=== PATIENT | male | born 1960 | race Caucasian/White ===

== ENCOUNTER 2017-03-12 09:26 | Inpatient (IN) | payer OTHER ==
[~2017-03-12] VITALS: Ht 175.3 cm; Wt 67.1 kg
[~2017-03-12 09:26] MED LIST: AMLO10TA2 PO; ASPI81TA81; CARV6.25 PO; CRUTMIS25; CRUTMIS3; GABA800T PO; HYDR25TA5 PO; LIPI10TA PO; OXYC1TAB35 PO; OXYC1TAB63 PO; PLAV75TA29 PO; PRIN20TA2 PO
[2017-03-12 09:29] VITALS: BP 185/87; PULSE 75; RESP 16; TEMP 98.2; O2SAT 97
[2017-03-12] MEDS ORDERED: HEPARIN-D5W INJ 250 ML IV SCH ×2 (10:15→13:45)
[2017-03-12] MEDS ORDERED: HEPARIN SODIUM - IV 10,000 UNITS/10 ML VIAL IV ONE (10:15)
[2017-03-12 10:24] LABS: AUTOMATED NEUTROPHIL # 6.3 TH/MM3 (1.8-7.7); BASOPHIL # 0.1 TH/MM3 (0-0.2); BASOPHIL % 0.7 % (0.0-2.0); EOSINOPHIL # 0.1 TH/MM3 (0-0.4); EOSINOPHIL % 1.6 % (0.0-4.0); HEMATOCRIT 43.1 % (39.0-51.0); HEMO FLAGS DIFF FINAL; LYMPH % 11.1 % (9.0-44.0); LYMPHOCYTE # 0.9 TH/MM3 (1.0-4.8); MEAN CELL VOLUME 89.6 FL (80.0-100.0); MEAN CORPUSCULAR HEMOGLOBIN 29.8 PG (27.0-34.0); MEAN CORPUSCULAR HGB CONC 33.3 % (32.0-36.0); MONO % 9.4 % (0.0-8.0); NEUT % 77.2 % (16.0-70.0); PLATELET COUNT 152 TH/MM3 (150-450); RED BLOOD COUNT 4.82 MIL/MM3 (4.50-5.90); RED CELL DISTRIBUTION WIDTH 16.9 % (11.6-17.2); WHITE BLOOD COUNT 8.2 TH/MM3 (4.0-11.0)
[2017-03-12] MEDS ORDERED: HYDROmorphone HCL PF 1 MG/ML VIAL IVS ONE (10:30)
[2017-03-12 10:37] LABS: APTT (PATIENT) 27.6 SEC (24.3-30.1); PROTHROMBIN TIME - PATIENT 11.4 SEC (9.8-11.6)
[2017-03-12 10:41] LABS: ANION GAP 10 MEQ/L (5-15); AST (GOT) 28 U/L (15-37); BICARBONATE 24.7 MEQ/L (21.0-32.0); BLOOD UREA NITROGEN 10 MG/DL (7-18); CHLORIDE 97 MEQ/L (98-107); GLOMERULAR FILTRATION RATE 112 ML/MIN (>89); SODIUM (NA) 132 MEQ/L (136-145)
[2017-03-12 10:44] LABS: ALKALINE PHOSPHATASE 49 U/L (45-117); ALT (GPT) 35 U/L (12-78); TOTAL BILIRUBIN ADULT 0.7 MG/DL (0.2-1.0)
[2017-03-12] MEDS ORDERED: IOHEXOL 350 MG/ML 10 ML VIAL (for RAD DIAG) IV ONE (11:35)
[2017-03-12 11:54] VITALS: BP 135/72; PULSE 65; RESP 16; O2SAT 95
--- NOTE | 2017-03-12 12:06 | PD ---
HPI Chief Complaint: Musculoskeletal Complaint Time Seen by Provider: 09:48 Travel History International Travel<30 days: No Contact w/Intl Traveler<30days: No Traveled to known affect area: No History of Present Illness HPI So 57 year-old man who presents to the emergency department complaining of painful cold right foot. He reports a history of a femoropopliteal bypass in September with Dr. Delatorre. He states he was doing fine last night and then today he noticed increased pain in the foot, and it felt cold and dusky. His a history of peripheral vascular disease, CAD, hypertension, hyperlipidemia. Is on baby aspirin and Plavix daily. Is been taking his doses regularly. History Past Medical History Narrative Medical Peripheral arterial disease CAD Hypertension hyperlipidemia Tetanus Vaccination: < 5 Years Influenza Vaccination: Yes Social History Alcohol Use: No Tobacco Use: No Allergies-Medications (Allergen,Severity, Reaction): Coded Allergies: No Known Allergies (Unverified , 09/28/16) Reported Meds & Prescriptions Reported Meds & Active Scripts Active Prinivil (Lisinopril) 20 Mg Tab 20 Mg PO Q12HR Lipitor (Atorvastatin Calcium) 10 Mg Tab 10 Mg PO DAILY Hydrochlorothiazide 25 Mg Tab 25 Mg PO DAILY Amlodipine (Amlodipine Besylate) 10 Mg Tab 10 Mg PO DAILY Oxycodone-Acetaminophen 5-325 mg Tab 1 Tab PO Q4H PRN Oxycodone-Acetaminophen 7.5-325 mg Tab 1 Tab PO Q6H PRN Reported Crutch/Aluminum/Adult (Device) 1 Mis Mis 1 Ea .ROUTE DIRECTED Crutch Set/Wood/Adult (Device) 1 Mis Mis 1 Ea .ROUTE DIRECTED Gabapentin 800 Mg Tab 800 Mg PO TID Plavix (Clopidogrel Bisulfate) 75 Mg Tab 75 Mg PO DAILY Coreg (Carvedilol) 6.25 Mg Tab 6.25 Mg PO Q12HR Aspir-81 (Aspirin) 81 Mg Tabdr 1 Tab DAILY Review of Systems Except as stated in HPI: all other systems reviewed are Neg Physical Exam Narrative GENERAL: 57 year-old man, no acute distress. NECK: Trachea midline. No JVD. CARDIOVASCULAR: Regular rate and rhythm. No murmur appreciated. RESPIRATORY: No accessory muscle use. Clear to auscultation. Breath sounds equal bilaterally. GASTROINTESTINAL: Abdomen soft, non-tender, nondistended. Hepatic and splenic margins not palpable. MUSCULOSKELETAL: Focus examination the right lower extremity reveals the foot to be pale and dusky cold. The entire leg is fairly cool. There are no palpable pulses in the femoral, popliteal, or distally. He has multiple incisions in his proximal leg and the medial knee from what appears to be of previous femoropopliteal bypass. I don't feel pulses over either of these areas. He still is muscular function in the leg. NEUROLOGICAL: Awake and alert. No obvious cranial nerve deficits. Motor grossly within normal limits. Normal speech. PSYCHIATRIC: Appropriate mood and affect; insight and judgment normal. Data Data Last Documented VS Vital Signs Date Time Temp Pulse Resp B/P Pulse Ox O2 Delivery O2 Flow Rate FiO2 03/12/17 11:54 65 16 135/72 95 Room Air 03/12/17 09:29 98.2 Orders Complete Blood Count With Diff (03/12/17 09:48) Comprehensive Metabolic Panel (03/12/17 09:48) Act Partial Throm Time (Ptt) (03/12/17 09:48) Prothrombin Time / Inr (Pt) (03/12/17 09:48) Iv Access Insert/Monitor (03/12/17 09:48) Cta Runoff W Iv Contrast W 3d (03/12/17 ) Heparin Infusion IRMA.Q1H (03/12/17 10:13) Heparin Inj (Heparin Inj) (03/12/17 16:15) Heparin Inj (Heparin Inj) (03/12/17 16:15) Heparin-D5w Inj (Heparin-D5w Inj) (03/12/17 10:15) Act Partial Throm Time (Ptt) (03/12/17 10:13) Cbc No Diff, Includes Plts (03/12/17 10:13) Cbc No Diff, Includes Plts (03/15/17 06:00) Act Partial Throm Time (Ptt) (03/12/17 17:13) Occult Blood (Hemoccult) Stool (03/12/17 10:13) Heparin Inj (Heparin Inj) (03/12/17 10:15) Hydromorphone Pf Inj (Dilaudid Pf Inj) (03/12/17 10:30) Iohexol 350 Inj (Omnipaque 350 Inj) (03/12/17 11:35) Invasive Rad Dept Consult (03/12/17 ) Admit Order (Ed Use Only) (03/12/17 ) Admit To Inpatient (03/12/17 ) Code Status (03/12/17 13:33) Vital Signs (Adult) Q4H (03/12/17 13:33) Activity Bed Rest (03/12/17 13:33) Intake + Output IRMA.QSHIFT (03/12/17 13:33) Diet Npo (03/12/17 Lunch) Sodium Chlor 0.9% 1000 Ml Inj (Ns 1000 M (03/12/17 13:33) Sodium Chloride 0.9% Flush (Ns Flush) (03/12/17 13:45) Sodium Chloride 0.9% Flush (Ns Flush) (03/12/17 21:00) Ondansetron Inj (Zofran Inj) (03/12/17 13:45) Pantoprazole Inj (Protonix Inj) (03/12/17 13:45) Basic Metabolic Panel (Bmp) (03/13/17 06:00) Hepatic Functional Panel (03/13/17 06:00) Complete Blood Count With Diff (03/13/17 06:00) Resp Incentive Spirometry (03/12/17 ) Consult Hospitalist (03/12/17 ) Post-Op Orders (For Pharmacy) (Post-Op O (03/12/17 13:45) Morphine Inj (Morphine Inj) (03/12/17 13:45) Naloxone Inj (Narcan Inj) (03/12/17 13:45) Inpatient Certification (03/12/17 ) Labs Laboratory Tests Test 03/12/17 10:00 White Blood Count 8.2 TH/MM3 Red Blood Count 4.82 MIL/MM3 Hemoglobin 14.4 GM/DL Hematocrit 43.1 % Mean Corpuscular Volume 89.6 FL Mean Corpuscular Hemoglobin 29.8 PG Mean Corpuscular Hemoglobin 33.3 % Concent Red Cell Distribution Width 16.9 % Platelet Count 152 TH/MM3 Mean Platelet Volume 9.2 FL Neutrophils (%) (Auto) 77.2 % Lymphocytes (%) (Auto) 11.1 % Monocytes (%) (Auto) 9.4 % Eosinophils (%) (Auto) 1.6 % Basophils (%) (Auto) 0.7 % Neutrophils # (Auto) 6.3 TH/MM3 Lymphocytes # (Auto) 0.9 TH/MM3 Monocytes # (Auto) 0.8 TH/MM3 Eosinophils # (Auto) 0.1 TH/MM3 Basophils # (Auto) 0.1 TH/MM3 CBC Comment DIFF FINAL Differential Comment Prothrombin Time 11.4 SEC Prothromb Time International 1.0 RATIO Ratio Activated Partial 27.6 SEC Thromboplast Time Sodium Level 132 MEQ/L Potassium Level 4.0 MEQ/L Chloride Level 97 MEQ/L Carbon Dioxide Level 24.7 MEQ/L Anion Gap 10 MEQ/L Blood Urea Nitrogen 10 MG/DL Creatinine 0.73 MG/DL Estimat Glomerular Filtration 112 ML/MIN Rate Random Glucose 128 MG/DL Calcium Level 8.9 MG/DL Total Bilirubin 0.7 MG/DL Aspartate Amino Transf 28 U/L (AST/SGOT) Alanine Aminotransferase 35 U/L (ALT/SGPT) Alkaline Phosphatase 49 U/L Total Protein 7.4 GM/DL Albumin 3.9 GM/DL [facility] Medical Decision Making Medical Screen Exam Complete: Yes Emergency Medical Condition: Yes Interpretation(s) LABS: CBC unremarkable. CMP unremarkable. Coags unremarkable. CTA: Occluded external iliac pack artery bypass graft, occluded right femoropopliteal bypass. Reconstitution of the [id number] popliteal, trifurcation vessels are patent with an approximal A poorly opacified distal with this due to the more proximal occlusions. Differential Diagnosis Arterial occlusion, dissection, DVT, other Narrative Course Medical decision making INITIAL: 57 year-old man who presents emergent from with evidence of acute arterial insufficiency in the right leg. It seems like he may have some element of chronic insufficiency as well. I spoke with Dr. Nolan immediately after my initial assessment, patient's previous vascular surgeon. He will come and evaluate the patient. CTA of his right lower extremity was ordered. Patient was started on heparin. He was given pain medicine. FINAL: CTA confirms occlusion of the patient's grafts. Dr. ch making the bedside to evaluate the patient. He'll be taken for endovascular intervention with TPA. Diagnosis Primary Impression: Arterial occlusion Additional Impression: Peripheral arterial occlusive disease Admitting Information Admitting Physician Requests: Admit Ron Fierro MD March 12, 2017 12:06
--- NOTE | 2017-03-12 12:28 | RADRPT ---
EXAM DATE/TIME: 03/12/2017 10:45 [facility] COMPARISON: CTA RUNOFF W 3D RECON, September 16, 2016, 12:18. INDICATIONS : Right cold foot with history of peripheral vascular disease. IV CONTRAST: 99 cc Omnipaque 350 (iohexol) IV RADIATION DOSE: 8.29 CTDIvol (mGy) MEDICAL HISTORY : Cardiovascular disease. Hypertension. SURGICAL HISTORY : Lumbar surgery ENCOUNTER: Initial ACUITY: 1 day PAIN SCALE: 4/10 LOCATION: Right foot TECHNIQUE: Volumetric scanning was performed using a multi-row detector CT scanner. The data was post processed with a variety of visualization algorithms including full volume maximum intensity projection, multi -planar sliding thin slab reformation, curved planar reformation, and surface rendering techniques. Using automated exposure control and adjustment of the mA and/or kV according to patient size, radiat ion dose was kept as low as reasonably achievable to obtain optimal diagnostic quality images. FINDINGS: Aorta/inflow: Atherosclerotic changes are seen involving the aorta with eccentric mural thrombus seen within the in frarenal aorta. No ulceration appreciated. No aneurysmal change or hemodynamically significant stenos is. Heavily calcified plaque involving the inflow vessels bilaterally. The right external iliac arter y is chronically occluded. Since the previous examination there has been placement of a bypass in inv olving the right iliac system. The proximal anastomosis is at the distal common iliac level the dista l anastomosis at the common femoral level. This bypass is occluded. There is a stent involving the le ft external iliac artery. This is patent. Left common iliac artery is patent. The left internal iliac artery is occluded. The right is stenotic. The celiac, SMA, JANENE, and renal arteries are patent. Right lower extremity: Since the previous examination there has been placement of a second femoral artery to above-knee popl iteal artery bypass graft. This graft is occluded. The previously seen bypass graft is also occluded. The [place] SFA and common femoral artery are occluded. The profunda femoris does reconstitute via op erator collateralization. There is reconstitution of the popliteal artery just [id number]-wzn-[id number] joint. This is patent. The trifurcation vessels are poorly evaluated due to the proximal occlusions. There i s patency to the level of the proximal catheter within all 3 trifurcation vessels. Left lower extremity: There is a bypass graft beginning at the common femoral artery and extending to the qzayn-crj-uomw po pliteal artery. Several stents are seen throughout the bypass itself. The bypass is patent. Profunda femoris is stenotic at its origin but otherwise patent. [place] SFA is occluded. The popliteal artery below the bypass is patent. 2 vessel runoff to the foot is observed via the posterior tibial artery a nd anterior tibial artery. Peroneal artery is occluded proximally. Other structures: The liver is diffusely low in attenuation. Multiple granulomatous calcifications are seen involving t he spleen. Tiny cortical renal cysts bilaterally. CONCLUSION: 1. Interval placement of a right external iliac artery bypass graft since the prior exam. This bypass is occluded. Left inflow is patent. 2. Interval placement of a new right femoropopliteal bypass. This bypass as well as the previous bypa ss and [place] SFA are occluded. There is reconstitution of the ybibu-ybc-begi popliteal artery. Trifu rcation vessels are patent within the proximal calf but are poorly opacified distal to this due to th e more proximal occlusions. 3. Left lower extremity has a patent femoropopliteal bypass. 2 vessel runoff to the foot. 4. Hepatic steatosis. Donavan Lindsey Jr., MD on March 12, 2017 at 12:16 Board Certified Radiologist. This report was verified electronically.
[2017-03-12] MEDS ORDERED: MORPHINE SULFATE 4 MG/ML INJ IV PRN (13:45)
[2017-03-12] MEDS ORDERED: ONDANSETRON HCL 4 MG/2 ML VIAL IV PRN ×2 (13:45→17:30)
[2017-03-12] MEDS ORDERED: NALOXONE HCL 0.4 MG/ML AMP IV PRN (13:45)
[2017-03-12] MEDS ORDERED: SODIUM CHLORIDE 0.9% FLUSH 10 ML FLUSH IV FLUSH PRN (13:45)
[2017-03-12] MEDS ORDERED: HYDROmorphone HCL PF 1 MG/ML VIAL IV PUSH ONE (13:45)
[2017-03-12] MEDS ORDERED: Post-op Orders (for Pharmacy) MISC XX ONE (13:45)
[2017-03-12] MEDS: SODIUM CHLOR 0.9% 1000 ML INJ 1,000 ML IV SCH (13:53)
[2017-03-12] MEDS: PANTOPRAZOLE SODIUM 40 MG VIAL IV SCH (14:00)
[2017-03-12 14:33] VITALS: BP 135/73; PULSE 63; RESP 16; O2SAT 95
--- NOTE | 2017-03-12 14:59 | MH ---
cc: NOÉ GROVER MD DATE OF ADMISSION: 03/12/2017 ADMITTING DIAGNOSIS Occlusion of the right common iliac to common femoral and right common femoral to popliteal artery graft. HISTORY OF PRESENT DISEASE This 57-year-old male, lifetime smoker, was admitted this morning through the emergency room. The patient was doing fine last night and states that this morning he suddenly felt numbness and pain in his right foot and his right leg turned pale. PAST MEDICAL HISTORY 1. Coronary artery disease with stent placement. 2. Hypertension. 3. Hyperlipidemia. 4. Tobacco abuse. PAST SURGICAL HISTORY 1. Coronary artery angioplasty and stenting. 2. Bilateral femoral-popliteal bypass in 2007 followed by above-noted common iliac to common femoral and common femoral to popliteal bypass by me in 2016. The patient did well until now for the last six months. MEDICATIONS 1. Plavix. 2. Aspirin. 3. Hydrochlorothiazide. 4. Amlodipine. 5. Pletal. 6. Coreg. SOCIAL HISTORY The patient drinks about a six-pack per day and smokes about a pack a day. The patient states he stopped smoking but he smells of cigarette smoke and adverts his eyes when talking about it. PHYSICAL EXAMINATION GENERAL: The physical examination reveals a 58-year-old male appearing older than his actual age. HEENT: Normocephalic. No trauma to the head. Pupils equal and reactive. Extraocular muscles intact. NECK: Bilateral carotid pulses. Faint right carotid bruit that was worked up in the past and the patient was not found to have any significant stenosis. CHEST: Bilateral breath sounds, somewhat decreased over both apices. HEART: Regular rhythm. ABDOMEN: Soft. Active bowel sounds. No rebound. No guarding. No masses. EXTREMITIES: The patient has palpable femoral pulse on the left. He has Doppler popliteal, dorsalis pedis and posterior tibial on the left. On the left side the pulse is probably caused by reconstitution for his bypass graft is patent but has several stents. The left foot is warm. On the right side the patient has actually Doppler'able femoral pulse which is probably collateral flow. There is nothing palpable there. The common iliac to common femoral and then common femoral to popliteal artery bypass is occluded. The patient has no popliteal pulse; however, he does have very weak pulse in the popliteal artery which is probably some reconstitution. This is only a Doppler'able weak signal. Distal to that there is nothing. The foot is pale, cold and insensate. The patient, however, does have full motion of the feet. IMPRESSION AND PLAN In the face of the above the patient was taken to the boat laborer. I discussed this with Dr. Goodman and the patient will have a TPA lysis over the next 24-48 hours. This might open up the grafts and this may be all that needs to be done. If this does not succeed completely the patient will need additional open surgery to retrieve some of the clots in trying to establish the blood flow. Again the patient has had several surgeries. He had previous graft and then redo graft and we are kind of getting at the end of the road with this. The only other option that would be left is an in situ vein which does not exist in this patient so the only next thing would be a cadaveric vein. However, the patient's smoking history is not helping. Critical care time 40 minutes. Noé UP /2:15 PM /2:39 PM
[2017-03-12] MEDS ORDERED: MIDAZOLAM HCL 5 MG/5 ML VIAL ONE (15:31)
[2017-03-12] MEDS ORDERED: fentaNYL CITRATE 250 MCG/5 ML AMP ONE (15:31)
[2017-03-12] MEDS ORDERED: CILOSTAZOL 100 MG TAB PO SCH (16:00)
[2017-03-12] MEDS ORDERED: HEPARIN SODIUM - IV 10,000 UNITS/10 ML VIAL IV PRN ×2 (16:15)
[2017-03-12] MEDS ORDERED: ASPIRIN 325 MG TAB PO SCH (16:45)
[2017-03-12] MEDS ORDERED: IODIXANOL 320 MG/ML 50 ML VIAL (for RAD SPEC) I-ARTERIAL ONE (16:45)
--- NOTE | 2017-03-12 16:48 | PD.CONS ---
HPI Service [facility] Hospitalists Consult Requested By Dr. Nolan Reason for Consult Medical management Primary Care Physician Grace Harley MD Diagnoses: History of Present Illness This is a 57 yo male with a past medical history significant for peripheral vascular disease status post bilateral femoral popliteal bypass in 2007 followed by common iliac to common femoral and common femoral to popliteal bypass done in September 2016, coronary artery disease status post stent placement with history of previous NH 2, hypertension, hyperlipidemia and previous lifelong tobacco user up until 5 months ago who was admitted with numbness and pain in the right foot due to bypass occlusion. Hospitalist services have been consulted for medical management. Patient states that he been doing well up until this morning when he developed significant pain and numbness in the right foot. He also noticed that it became very pale in color and he was unable to feel a pulse. Patient was unable to walk on the right leg. Patient states he's been taking all his medications as prescribed and reports that he quit smoking 5 months ago. In the ED, CTA revealed occlusion of the right external iliac artery bypass graft, occlusion of the new right femoral popliteal bypass and [place] SFA and trifurcation vessels are patent within the proximal calf that are poorly opacified distal due to more proximal occlusions. Plan by the primary team is for the patient to have TPA lysis over the next 24-48 hours in the hopes of opening up the grass without any further treatment needed. However per Dr. Denise's note, if this attempt is unsuccessful the patient will need additional open surgery to retrieve some of the clots in an effort to reestablish blood flow. Patient reports his pain is controlled at this time. Review of Systems Except as stated in HPI: all other systems reviewed are Neg Past Family Social History Allergies: Coded Allergies: No Known Allergies (Unverified , 09/28/16) Past Medical History Peripheral vascular disease Coronary artery disease status post stent placement with history of previous NH Hypertension Hyperlipidemia Recent history of tobacco abuse Past Surgical History Cardiac stent placement 1996 and 2013 Left and right femoral-popliteal bypass and a right sided iliac stenting Right common iliac to common femoral and common femoral to popliteal bypass September 2016 Back surgery, details unknown Bilateral knee surgery, details unknown Reported Medications Prinivil (Lisinopril) 20 Mg Tab 20 Mg PO Q12HR Lipitor (Atorvastatin Calcium) 10 Mg Tab 10 Mg PO DAILY Hydrochlorothiazide 25 Mg Tab 25 Mg PO DAILY Amlodipine (Amlodipine Besylate) 10 Mg Tab 10 Mg PO DAILY Oxycodone-Acetaminophen 5-325 mg Tab 1 Tab PO Q4H PRN Oxycodone-Acetaminophen 7.5-325 mg Tab 1 Tab PO Q6H PRN Crutch/Aluminum/Adult (Device) 1 Mis Mis 1 Ea .ROUTE DIRECTED Crutch Set/Wood/Adult (Device) 1 Mis Mis 1 Ea .ROUTE DIRECTED Gabapentin 800 Mg Tab 800 Mg PO TID Plavix (Clopidogrel Bisulfate) 75 Mg Tab 75 Mg PO DAILY Coreg (Carvedilol) 6.25 Mg Tab 6.25 Mg PO Q12HR Aspir-81 (Aspirin) 81 Mg Tabdr 1 Tab DAILY Active Ordered Medications Current Medications Medications (Trade) Dose Ordered Sig/Kayla Route Start Time Stop Time Status Last Admin (NS 1000 ml Inj) 1,000 ml @ 100 mls/hr Q10H IV 03/12/17 13:33 03/12/17 13:53 (NS Flush) 2 ml UNSCH PRN IV FLUSH 03/12/17 13:45 (NS Flush) 2 ml BID IV FLUSH 03/12/17 21:00 (Zofran Inj) 4 mg Q6H PRN IV 03/12/17 13:45 (Protonix Inj) 40 mg Q24H IV 03/12/17 14:00 (Morphine Inj) 2 mg Q3H PRN IV 03/12/17 13:45 (Narcan Inj) 0.4 mg UNSCH PRN IV 03/12/17 13:45 (Lipitor) 10 mg DAILY PO 03/13/17 09:00 (Coreg) 6.25 mg Q12HR PO 03/12/17 21:00 (Prinivil) 20 mg Q12HR PO 03/12/17 21:00 Amlodipine Besylate 10 mg 10 mg DAILY PO 03/13/17 09:00 (Heparin-D5W Inj) 250 ml @ 0 mls/hr TITRATE IV 03/12/17 13:45 (Pletal) 100 mg BIDAC PO 03/12/17 16:00 Family History Coronary artery disease Peripheral vascular disease Emphysema Social History Patient has a history of tobacco use of a pack per day "all his life" but states he quit smoking in September following his last surgery. Patient admits to alcohol consumption of 3-4 beers a night he denies any previous history of withdrawals. Physical Exam Vital Signs Vital Signs Date Time Temp Pulse Resp B/P Pulse Ox O2 Delivery O2 Flow Rate FiO2 03/12/17 14:33 63 16 135/73 95 Room Air 03/12/17 14:19 14 03/12/17 11:54 65 16 135/72 95 Room Air 03/12/17 11:00 14 03/12/17 09:29 98.2 75 16 185/87 97 Physical Exam GENERAL: This is a well-nourished, well-developed patient, in no apparent distress. Awake and alert. SKIN: No rashes, ecchymoses or lesions. Cool and dry. HEAD: Atraumatic. Normocephalic. EYES: Extraocular motions intact. No scleral icterus. No injection or drainage. ENT: Nose without bleeding, purulent drainage or septal hematoma. NECK: Trachea midline. No lymphadenopathy. CARDIOVASCULAR: Regular rate and rhythm without murmurs, gallops, or rubs. RESPIRATORY: Diffuse rhonchi throughout. Breath sounds equal bilaterally. GASTROINTESTINAL: Abdomen soft, non-tender, nondistended. No hepato-splenomegaly , or palpable masses. No guarding. MUSCULOSKELETAL: Extremities without clubbing or edema. Right foot is pale. Right foot and leg are cool to the touch. Pulses are nonpalpable. Multiple well healed surgical scars noted. Motor function appears grossly intact. No joint tenderness, effusion, or edema noted. Palpable pulses on the left foot which is normal in color and temperature. NEUROLOGICAL: Awake and alert. Able to move all extremities. Normal speech. Laboratory Laboratory Tests Test 03/12/17 10:00 White Blood Count 8.2 Red Blood Count 4.82 Hemoglobin 14.4 Hematocrit 43.1 Mean Corpuscular Volume 89.6 Mean Corpuscular Hemoglobin 29.8 Mean Corpuscular Hemoglobin 33.3 Concent Red Cell Distribution Width 16.9 Platelet Count 152 Mean Platelet Volume 9.2 Neutrophils (%) (Auto) 77.2 Lymphocytes (%) (Auto) 11.1 Monocytes (%) (Auto) 9.4 Eosinophils (%) (Auto) 1.6 Basophils (%) (Auto) 0.7 Neutrophils # (Auto) 6.3 Lymphocytes # (Auto) 0.9 Monocytes # (Auto) 0.8 Eosinophils # (Auto) 0.1 Basophils # (Auto) 0.1 CBC Comment DIFF FINAL Differential Comment Prothrombin Time 11.4 Prothromb Time International 1.0 Ratio Activated Partial 27.6 Thromboplast Time Sodium Level 132 Potassium Level 4.0 Chloride Level 97 Carbon Dioxide Level 24.7 Anion Gap 10 Blood Urea Nitrogen 10 Creatinine 0.73 Estimat Glomerular Filtration 112 Rate Random Glucose 128 Calcium Level 8.9 Total Bilirubin 0.7 Aspartate Amino Transf 28 (AST/SGOT) Alanine Aminotransferase 35 (ALT/SGPT) Alkaline Phosphatase 49 Total Protein 7.4 Albumin 3.9 Result Diagram: 03/12/17 1000 03/12/17 1000 Imaging Last Impressions Aorta w/Runoff CTA 03/12/17 0000 Signed Impressions: Service Date/Time: Sunday, March 12, 2017 10:45 - CONCLUSION: 1. Interval placement of a right external iliac artery bypass graft since the prior exam. This bypass is occluded. Left inflow is patent. 2. Interval placement of a new right femoropopliteal bypass. This bypass as well as the previous bypass and [place] SFA are occluded. There is reconstitution of the [id number] popliteal artery. Trifurcation vessels are patent within the proximal calf but are poorly opacified distal to this due to the more proximal occlusions. 3. Left lower extremity has a patent femoropopliteal bypass. 2 vessel runoff to the foot. 4. Hepatic steatosis. Donavan Lindsey Jr., MD Assessment and Plan Assessment and Plan 57 yo male with a past medical history significant for peripheral vascular disease status post bilateral femoral popliteal bypass in 2007 followed by common iliac to common femoral and common femoral to popliteal bypass done in September 2016, coronary artery disease status post stent placement with history of previous NH 2, hypertension, hyperlipidemia and previous lifelong tobacco user up until 5 months ago who was admitted with numbness and pain in the right foot due to bypass occlusion. Hospitalist services have been consulted for medical management. //Occlusion of the right external iliac artery bypass graft, occlusion of the new right femoral popliteal bypass and [place] SFA Management per primary team CTA, images reviewed by me, reveals an occluded right external iliac artery bypass graft, occlusion of new right femoral popliteal bypass and [place] SFA Plan is for patient to have TPA lysis over the next 24-48 hours Continue with Pletal BID Pain management per primary team //HTN/CAD s/p cardiac stents/previous NH BP well controlled Continue with current antihypertensive medication regimen ASA daily monitor BP and adjust treatment as indicated //Dyslipidemia Continue with statin obtain fasting lipid panel //Hyponatremia Mild on IVF A.m. labs to monitor //Daily EtOH use [facility] protocol Monitor for signs and symptoms of alcohol withdrawal Thiamine and folate daily //DVT prophylaxis Patient on tPA Written by Zahra Medina PA-C acting as scribe for Dr. Burr on 03/12/17 at 16:26. This note was transcribed by scribe [Zahra Medina PA-C]. I, Dr. Deandre Burr personally performed the history, physical exam, and medical decision making; and confirmed the accuracy of the information in the transcribed note. Authenticated by Dr. Deandre Burr on 03/12/17 at 1630. Discussed Condition With patient, nursing staff and ED physician Zahra Medina March 12, 2017 16:48 Deandre Burr MD March 12, 2017 20:59
--- NOTE | 2017-03-12 16:58 | PD.RAD ---
Post Procedure Progress Note Pre Procedure Diagnosis: (1) Arterial occlusion (2) Peripheral vascular disease Post Procedure Diagnosis: (1) Arterial occlusion (2) Peripheral vascular disease (3) Occlusion of femoral-popliteal bypass graft (4) occlusion of ilio-femoral bypass graft Procedure Date: March 12, 2017 Supervising Radiologist: Benji Goodman Proceduralist/Assist: Dolores Michel, RT(R)(), Milly Mcwilliams, RT(R) Anesthesia: Local, Analgesia, Conscious Sedation Plan of Activity Patient to Unit: Critical Care Patient Condition: Good See PACS Report for procedural detail/treatment Vascular-Arterial Procedure Procedure 1 Procedure Site: Right Leg Procedure(s): Angiogram, Thrombolysis Access Access Site(s): Left Femoral Artery Sheath(s) Remaining: Left Femoral Artery Findings: Occlusion of [place] external iliac and SFA. Occlusion of right Ilio-femoral and femoral-popliteal bypass grafts. Traversed with catheter and wire. 50 cm infusion running at 50cc/hr (1mg/hr) and 25cc/hr (0.5mg/hr) through 6 fr sheath (to treat more central occlusion) Plan Re-evaluate tomorrow. Benji Goodman MD March 12, 2017 16:58
[2017-03-12] MEDS ORDERED: LORazepam 2 MG TAB PO PRN (17:00)
[2017-03-12] MEDS ORDERED: LORazepam 2 MG/ML VIAL IV PUSH PRN ×4 (17:00)
[2017-03-12] MEDS ORDERED: LORazepam 1 MG TAB PO PRN (17:00)
[2017-03-12] MEDS ORDERED: FLUMAZENIL 0.5 MG/5 ML VIAL IV PUSH PRN (17:00)
[2017-03-12] MEDS ORDERED: ALTEPLASE RECOMBINANT 2 MG VIAL IV ONE (17:04)
[2017-03-12] MEDS ORDERED: Intra-Arterial HEPARIN 1,000 UNITS/500 ML NS (KVO) I-ARTERIAL SCH ×2 (17:30)
[2017-03-12] MEDS ORDERED: HEPARIN 25,000 UNITS/250 ML D5W IV SCH (17:30)
[2017-03-12] MEDS ORDERED: Intra-Arterial ALTEPLASE 10 MG/500 ML NS I-ARTERIAL SCH ×2 (17:30)
[2017-03-12] MEDS: MORPHINE SULFATE 4 MG/ML INJ IV PRN ×7 (17:49→22:23)
[2017-03-12 19:00] VITALS: O2SAT 96
[2017-03-12 20:00] VITALS: BP 148/70; PULSE 59; RESP 15; TEMP 97.9; O2SAT 96
[2017-03-12] MEDS: SODIUM CHLORIDE 0.9% FLUSH 10 ML FLUSH IV FLUSH SCH (21:00)
--- NOTE | 2017-03-12 21:25 | PD.CONS ---
[facility] Service Critical Care Medicine Consult Requested By Primary Care Physician Grace Harley MD History of Present Illness 57-year-old male with a lifelong history of tobacco abuse, previous bilateral femoral-popliteal bypass surgeries, coronary stent interventions, was admitted March 12, 2017 in the morning because he suddenly felt numbness and pain in his right foot and his right leg turned pale. Patient underwent emergent TPA administration for extremity reperfusion. Review of Systems Constitutional: DENIES: Diaphoretic episodes, Fatigue, Fever, Weight gain, Weight loss, Chills, Dizziness, Change in appetite, Night Sweats Endocrine: DENIES: Heat/cold intolerance, Polydipsia, Polyuria, Polyphagia Eyes: DENIES: Blurred vision, Diplopia, Eye inflammation, Eye pain, Vision loss , Photosensitivity, Double Vision Ears, nose, mouth, throat: DENIES: Tinnitus, Hearing loss, Vertigo, Nasal discharge, Oral lesions, Throat pain, Hoarseness, Ear Pain, Running Nose, Epistaxis, Sinus Pain, Toothache, Odynophagia Respiratory: DENIES: Apneas, Cough, Snoring, Wheezing, Hemoptysis, Sputum production, Shortness of breath Cardiovascular: COMPLAINS OF: Claudication, DENIES: Chest pain, Palpitations, Syncope, Dyspnea on Exertion, PND, Lower Extremity Edema, Orthopnea Gastrointestinal: DENIES: Abdominal pain, Black stools, Bloody stools, Constipation, Diarrhea, Nausea, Vomiting, Difficulty Swallowing, Anorexia Genitourinary: DENIES: Sexual dysfunction, Urinary frequency, Urinary incontinence, Urgency, Hematuria, Dysuria, Nocturia, Penile Discharge, Testicular Pain, Testicular Swelling Musculoskeletal: DENIES: Joint pain, Muscle aches, Stiffness, Joint Swelling, Back pain, Neck pain Integumentary: DENIES: Abnormal pigmentation, Nail changes, Pruritus, Rash Hematologic/lymphatic: DENIES: Bruising, Lymphadenopathy Immunologic/allergic: DENIES: Eczema, Urticaria Neurologic: COMPLAINS OF: Localized weakness, Paresthesias, DENIES: Abnormal gait, Headache, Seizures, Speech Problems, Tremor, Poor Balance Psychiatric: DENIES: Anxiety, Confusion, Mood changes, Depression, Hallucinations, Agitation, Suicidal Ideation, Homicidal Ideation, Delusions Past Family Social History Allergies: Coded Allergies: No Known Allergies (Unverified , 09/28/16) Past Medical History Coronary artery disease with stent placement. Hypertension. Hyperlipidemia. Tobacco abuse. Past Surgical History Coronary artery angioplasty and stenting. Bilateral femoral-popliteal bypass in 2008 followed by above-noted common iliac to common femoral and common femoral to popliteal bypass in 2016 Reported Medications Reported Meds & Active Scripts Active Prinivil (Lisinopril) 20 Mg Tab 20 Mg PO Q12HR Lipitor (Atorvastatin Calcium) 10 Mg Tab 10 Mg PO DAILY Hydrochlorothiazide 25 Mg Tab 25 Mg PO DAILY Amlodipine (Amlodipine Besylate) 10 Mg Tab 10 Mg PO DAILY Oxycodone-Acetaminophen 5-325 mg Tab 1 Tab PO Q4H PRN Oxycodone-Acetaminophen 7.5-325 mg Tab 1 Tab PO Q6H PRN Reported Gabapentin 800 Mg Tab 800 Mg PO TID Plavix (Clopidogrel Bisulfate) 75 Mg Tab 75 Mg PO DAILY Coreg (Carvedilol) 6.25 Mg Tab 6.25 Mg PO Q12HR Aspir-81 (Aspirin) 81 Mg Tabdr 1 Tab DAILY Active Ordered Medications Current Medications Medications (Trade) Dose Ordered Sig/Kayla Route PRN Reason Start Time Stop Time Status Last Admin Dose Admin Sodium Chloride (NS 1000 ml Inj) 1,000 ml @ 45 mls/hr [id number] IV 03/12/17 13:33 03/12/17 13:53 Sodium Chloride (NS Flush) 2 ml UNSCH PRN IV FLUSH FLUSH AFTER USING IV ACCESS 03/12/17 13:45 Sodium Chloride (NS Flush) 2 ml BID IV FLUSH 03/12/17 21:00 Ondansetron HCl (Zofran Inj) 4 mg Q6H PRN IV NAUSEA OR VOMITING 03/12/17 13:45 Pantoprazole Sodium (Protonix Inj) 40 mg Q24H IV 03/12/17 14:00 Morphine Sulfate (Morphine Inj) 2 mg Q3H PRN IV Pain 3-5; if unable to take PO 03/12/17 13:45 Naloxone HCl (Narcan Inj) 0.4 mg UNSCH PRN IV SEE LABEL COMMENTS 03/12/17 13:45 Atorvastatin Calcium (Lipitor) 10 mg DAILY PO 03/13/17 09:00 Carvedilol (Coreg) 6.25 mg Q12HR PO 03/12/17 21:00 Lisinopril (Prinivil) 20 mg Q12HR PO 03/12/17 21:00 Amlodipine Besylate 10 mg 10 mg DAILY PO 03/13/17 09:00 Heparin Sodium/ Dextrose (Heparin-D5W Inj) 250 ml @ 0 mls/hr TITRATE IV 03/12/17 13:45 Cilostazol (Pletal) 100 mg BIDAC PO 03/12/17 16:00 Aspirin (Aspirin) 81 mg DAILY PO 03/12/17 16:45 Flumazenil (Romazicon Inj) 0.2 mg Q1M PRN IV PUSH SEE LABEL COMMENTS 03/12/17 17:00 Lorazepam (Ativan) 1 mg Q4H PRN PO CIWA 8 - 10 03/12/17 17:00 Lorazepam (Ativan Inj) 1 mg Q4H PRN IV PUSH CIWA 8 - 10 03/12/17 17:00 Lorazepam (Ativan) 2 mg Q2H PRN PO CIWA 11-14 03/12/17 17:00 Lorazepam (Ativan Inj) 2 mg Q2H PRN IV PUSH CIWA 11-14 03/12/17 17:00 Lorazepam (Ativan Inj) 2 mg Q1H PRN IV PUSH CIWA 15-20 03/12/17 17:00 Lorazepam (Ativan Inj) 2 mg Q15M PRN IV PUSH CIWA > 20 03/12/17 17:00 Thiamine HCl (Vitamin B1) 100 mg DAILY PO 03/12/17 17:00 Folic Acid 1 mg 1 mg DAILY PO 03/12/17 17:00 Alteplase, Recombinant 10 mg/ Sodium Chloride 500 ml @ 0 mls/hr CONTINUOUS I-ARTERIAL 03/12/17 17:30 Heparin Sodium (Porcine) 1000 units/Sodium Chloride 500 ml @ 10 mls/hr UNSCH PRN I-ARTERIAL SEE LABEL COMMENTS 03/12/17 17:30 Heparin Sodium (Porcine) 1000 units/Sodium Chloride 500 ml @ 30 mls/hr [id number] I-ARTERIAL 03/12/17 17:30 Heparin Sodium/ Dextrose (Heparin-D5W Inj) 250 ml @ 0 mls/hr TITRATE IV 03/12/17 17:30 Morphine Sulfate (Morphine Inj) 2 mg Q10M PRN IV PAIN SCALE 1 TO 4 03/12/17 17:30 03/12/17 18:07 Morphine Sulfate (Morphine Inj) 4 mg Q10M PRN IV PAIN SCALE 5 TO 10 03/12/17 17:30 03/12/17 20:03 Ondansetron HCl (Zofran Inj) 4 mg Q6H PRN IV NAUSEA 03/12/17 17:30 Family History Noncontributory Social History - drinks about a six-pack per day - smokes about a pack a day Physical Exam Vital Signs Vital Signs Date Time Temp Pulse Resp B/P Pulse Ox O2 Delivery O2 Flow Rate FiO2 03/12/17 20:00 97.9 59 15 148/70 96 03/12/17 19:05 22 03/12/17 19:00 96 Nasal Cannula 2.00 03/12/17 14:33 63 16 135/73 95 Room Air 03/12/17 14:19 14 03/12/17 11:54 65 16 135/72 95 Room Air 03/12/17 11:00 14 03/12/17 09:29 98.2 75 16 185/87 97 Physical Exam GENERAL: Well-nourished, well-developed patient. SKIN: Warm and dry. HEAD: Normocephalic. EYES: No scleral icterus. No injection or drainage. NECK: Supple, trachea midline. No JVD or lymphadenopathy. CARDIOVASCULAR: Regular rate and rhythm without murmurs, gallops, or rubs. RESPIRATORY: Breath sounds equal bilaterally. No accessory muscle use. GASTROINTESTINAL: Abdomen soft, non-tender, nondistended. MUSCULOSKELETAL: No cyanosis, or edema. BACK: Nontender without obvious deformity. No CVA tenderness. EXTREMITIES: The patient has palpable femoral pulse on the left. He has positive pulses on the Doppler examination at popliteal, dorsalis pedis and posterior tibial on the left. The left foot is warm. On the right side the patient has Doppler'able femoral pulse but no pulses palpable. There is no popliteal pulse; there is a positive pulse in the popliteal artery on a Doppler exam with a very weak signal. The right foot is pale, cold and insensate, however, does have full motion of the feet. Laboratory Laboratory Tests Test 03/12/17 10:00 White Blood Count 8.2 Red Blood Count 4.82 Hemoglobin 14.4 Hematocrit 43.1 Mean Corpuscular Volume 89.6 Mean Corpuscular Hemoglobin 29.8 Mean Corpuscular Hemoglobin 33.3 Concent Red Cell Distribution Width 16.9 Platelet Count 152 Mean Platelet Volume 9.2 Neutrophils (%) (Auto) 77.2 Lymphocytes (%) (Auto) 11.1 Monocytes (%) (Auto) 9.4 Eosinophils (%) (Auto) 1.6 Basophils (%) (Auto) 0.7 Neutrophils # (Auto) 6.3 Lymphocytes # (Auto) 0.9 Monocytes # (Auto) 0.8 Eosinophils # (Auto) 0.1 Basophils # (Auto) 0.1 CBC Comment DIFF FINAL Differential Comment Prothrombin Time 11.4 Prothromb Time International 1.0 Ratio Activated Partial 27.6 Thromboplast Time Sodium Level 132 Potassium Level 4.0 Chloride Level 97 Carbon Dioxide Level 24.7 Anion Gap 10 Blood Urea Nitrogen 10 Creatinine 0.73 Estimat Glomerular Filtration 112 Rate Random Glucose 128 Calcium Level 8.9 Total Bilirubin 0.7 Aspartate Amino Transf 28 (AST/SGOT) Alanine Aminotransferase 35 (ALT/SGPT) Alkaline Phosphatase 49 Total Protein 7.4 Albumin 3.9 Result Diagram: 03/12/17 1000 03/12/17 1000 Imaging Last 24 hours Impressions Aorta w/Runoff CTA 03/12/17 0000 Signed Impressions: Service Date/Time: Sunday, March 12, 2017 10:45 - CONCLUSION: 1. Interval placement of a right external iliac artery bypass graft since the prior exam. This bypass is occluded. Left inflow is patent. 2. Interval placement of a new right femoropopliteal bypass. This bypass as well as the previous bypass and [place] SFA are occluded. There is reconstitution of the [id number] popliteal artery. Trifurcation vessels are patent within the proximal calf but are poorly opacified distal to this due to the more proximal occlusions. 3. Left lower extremity has a patent femoropopliteal bypass. 2 vessel runoff to the foot. 4. Hepatic steatosis. Donavan Lindsey Jr., MD Assessment and Plan Problem List: (1) Tobacco abuse ICD Code: Z72.0 Status: Acute (2) Alcohol abuse ICD Code: F10.10 Status: Acute (3) Peripheral arterial occlusive disease ICD Code: I77.9 Status: Acute (4) Femoral-popliteal bypass graft occlusion ICD Code: T82.898A Status: Acute (5) Hypertension ICD Code: I10 Status: Acute Assessment and Plan Ischemic limb - Due to occlusion of [place] external iliac and SFA - occlusion of right Ilio-femoral and femoral-popliteal bypass grafts - TPA reperfusion therapy - Further management per vascular surgeon and interventional radiologist Coronary artery disease - Status post stent placement. - Continue home medication Aspirin, Atorvastatin, and Coreg Hypertension - Coreg - Norvasc - Lisinopril Hyperlipidemia - Atorvastatin Tobacco abuse - Counseling provided Peripheral vascular disease - As above - Cilostazol Alcohol abuse - Monitor for withdrawal - Thiamine - Folate - Multivitamin - CIWA DVT GI prophylaxis - TPA heparin infusion and pantoprazole Critical Care: The total critical care time was 35 minutes. Time to perform other separately billable procedures was not included in the critical care time. Albert George MD March 12, 2017 21:25
[2017-03-12] MEDS: CARVEDILOL 6.25 MG TAB PO SCH (21:50)
[2017-03-12] MEDS: LISINOPRIL 20 MG TAB PO SCH (21:50)
[2017-03-12 22:00] VITALS: PULSE 60
[2017-03-12 22:58] LABS: AUTOMATED NEUTROPHIL # 9.8 TH/MM3 (1.8-7.7); BASOPHIL # 0.1 TH/MM3 (0-0.2); BASOPHIL % 0.7 % (0.0-2.0); EOSINOPHIL % 0.2 % (0.0-4.0); HEMATOCRIT 45.4 % (39.0-51.0); HEMO FLAGS DIFF FINAL; LYMPH % 5.5 % (9.0-44.0); LYMPHOCYTE # 0.6 TH/MM3 (1.0-4.8); MEAN CELL VOLUME 90.6 FL (80.0-100.0); MONO % 7.6 % (0.0-8.0); PLATELET COUNT 122 TH/MM3 (150-450); RED BLOOD COUNT 5.01 MIL/MM3 (4.50-5.90); RED CELL DISTRIBUTION WIDTH 16.9 % (11.6-17.2); WHITE BLOOD COUNT 11.4 TH/MM3 (4.0-11.0)
[2017-03-12 23:33] LABS: APTT (PATIENT) 36.4 SEC (24.3-30.1)
[2017-03-13] VITALS (8 sets, daily range): BP systolic 105–152; BP diastolic 58–78; PULSE 59–89; RESP 15–25; TEMP 96.6–99.3; O2SAT 93–96
[2017-03-13] MEDS: MORPHINE SULFATE 4 MG/ML INJ IV PRN ×5 (00:25→17:42)
[2017-03-13] MEDS: Intra-Arterial HEPARIN 1,000 UNITS/500 ML NS (PRN) I-ARTERIAL ×4 (00:55)
[2017-03-13 05:13] LABS: AUTOMATED NEUTROPHIL # 6.3 TH/MM3 (1.8-7.7); BASOPHIL % 0.5 % (0.0-2.0); EOSINOPHIL % 0.3 % (0.0-4.0); HEMATOCRIT 41.1 % (39.0-51.0); LYMPH % 14.2 % (9.0-44.0); LYMPHOCYTE # 1.2 TH/MM3 (1.0-4.8); MEAN CELL VOLUME 90.9 FL (80.0-100.0); MEAN CORPUSCULAR HEMOGLOBIN 29.5 PG (27.0-34.0); MEAN CORPUSCULAR HGB CONC 32.5 % (32.0-36.0); MONO % 8.8 % (0.0-8.0); NEUT % 76.2 % (16.0-70.0); PLATELET COUNT 114 TH/MM3 (150-450); RED BLOOD COUNT 4.53 MIL/MM3 (4.50-5.90); RED CELL DISTRIBUTION WIDTH 16.9 % (11.6-17.2); WHITE BLOOD COUNT 8.3 TH/MM3 (4.0-11.0)
[2017-03-13 05:16] LABS: HEMO FLAGS DIFF FINAL
[2017-03-13 05:31] LABS: APTT (PATIENT) 33.6 SEC (24.3-30.1)
[2017-03-13 05:46] LABS: BICARBONATE 26.6 MEQ/L (21.0-32.0); HDL CHOLESTEROL 44.3 MG/DL (40.0-60.0); INDIRECT BILIRUBIN 0.5 MG/DL (0.0-0.8); POTASSIUM 3.7 MEQ/L (3.5-5.1); TOTAL BILIRUBIN ADULT 0.7 MG/DL (0.2-1.0)
[2017-03-13] MEDS: ATORVASTATIN 10 MG TAB PO SCH (09:00)
[2017-03-13] MEDS: SODIUM CHLORIDE 0.9% FLUSH 10 ML FLUSH IV FLUSH SCH ×2 (09:00→21:00)
[2017-03-13] MEDS: FOLIC ACID 1 MG TAB PO SCH (09:00)
[2017-03-13] MEDS: THIAMINE HCL 100 MG TAB PO SCH (09:00)
[2017-03-13] MEDS: LISINOPRIL 20 MG TAB PO SCH ×2 (09:00→21:00)
[2017-03-13] MEDS: CARVEDILOL 6.25 MG TAB PO SCH ×2 (09:00→21:00)
[2017-03-13] MEDS ORDERED: MIDAZOLAM HCL 5 MG/5 ML VIAL ONE ×2 (09:20→10:30)
[2017-03-13] MEDS ORDERED: fentaNYL CITRATE 250 MCG/5 ML AMP ONE ×2 (09:20→10:30)
[2017-03-13] MEDS: SODIUM CHLOR 0.9% 1000 ML INJ 1,000 ML IV SCH ×2 (09:35→16:25)
--- NOTE | 2017-03-13 10:24 | PD.RAD ---
Post Procedure Progress Note Pre Procedure Diagnosis: (1) Femoral-popliteal bypass graft occlusion (2) occlusion of ilio-femoral bypass graft Post Procedure Diagnosis: (1) Femoral-popliteal bypass graft occlusion (2) occlusion of ilio-femoral bypass graft Procedure Date: March 13, 2017 Supervising Radiologist: Donavan Lindsey JR Proceduralist/Assist: Dolores Michel, RT(R)(), Chana Castillo RT(R)(CV) Anesthesia: Conscious Sedation Plan of Activity Patient to Unit: Critical Care Patient Condition: Good See PACS Report for procedural detail/treatment Vascular-Arterial Procedure Procedure 1 Procedure(s): Angiogram, Embolectomy, Fibrinolysis Access Access Site(s): Left Femoral Artery Closure Site(s): Left vascular closure device Findings: Patient with drop in fibrinogen. Continued limb threatening ischemia. Angio shows no significant change. Continued complete occlusion of Ileofem and fempop BPGs. Attempts at mechanical thrombectomy unsuccessful. Plan To OR for surgical repair. Jr. César,Donavan Hummel MD March 13, 2017 10:24
[2017-03-13] MEDS ORDERED: DEXAMETHASONE SOD PHOS 4 MG/ML VIAL ONE (10:30)
[2017-03-13] MEDS ORDERED: FAMOTIDINE 20 MG/2 ML VIAL ONE (10:30)
[2017-03-13] MEDS ORDERED: ACETAMINOPHEN 1000 MG/100 ML VIAL IV ONE (10:30)
[2017-03-13] MEDS ORDERED: IODIXANOL 320 MG/ML 50 ML VIAL (for RAD SPEC) I-ARTERIAL ONE (10:40)
[2017-03-13] MEDS ORDERED: ceFAZolin 2 GM PREMIX 50 ML IV ONE (11:00)
[2017-03-13] MEDS ORDERED: HEPARIN SODIUM - IV 10,000 UNITS/10 ML VIAL ONE (11:39)
[2017-03-13] MEDS ORDERED: PROTAMINE SULFATE 50 MG/5 ML VIAL ONE (11:40)
[2017-03-13] MEDS ORDERED: LACTATED RINGER'S 1000 ML INJ 1,000 ML IV ONE (12:00)
[2017-03-13] MEDS ORDERED: IOHEXOL 300 MG/ML 50 ML BTL (for RAD DIAG) IV ONE (12:00)
[2017-03-13] MEDS ORDERED: ONDANSETRON HCL 4 MG/2 ML VIAL IV PUSH ONE (12:00)
[2017-03-13] MEDS ORDERED: PROPOFOL 200 MG/20 ML AMP IV ONE (12:00)
[2017-03-13] MEDS ORDERED: HEPARIN SODIUM - SQ 10,000 UNITS/ML VIAL OTHER ONE (12:00)
[2017-03-13] MEDS ORDERED: NEOSTIGMINE 3 MG/3 ML SYR IV ONE (12:00)
[2017-03-13] MEDS ORDERED: ePHEDrine/NS 25 MG/5 ML SYR IV ONE (12:00)
[2017-03-13] MEDS ORDERED: PHENYLEPH/NS 1000 MCG/10 ML SYR IV ONE (12:00)
[2017-03-13] MEDS ORDERED: HEPARIN SODIUM - IV 10,000 UNITS/10 ML VIAL IV ONE (12:32)
[2017-03-13] MEDS ORDERED: PROTAMINE SULFATE 50 MG/5 ML VIAL IV ONE (12:42)
--- NOTE | 2017-03-13 13:59 | RADRPT ---
EXAM DATE/TIME: 03/13/2017 09:25 [place] COMPARISON: ANGIOGRAM, RIGHT LEG, March 12, 2017, 15:43. INDICATIONS : <<Patient is status post approximately 8 hours of TPA infusion. Fibrinogen has fallen to approximatel y 60. Symptomatically the patient is unchanged. MEDICAL HISTORY : <<History of PVD, CAD, HTN, HLD, MO, irregular heartbeat.>> SURGICAL HISTORY : <<History of femoropopliteal bypass , Cardiac stent, Lumbar surgery.>> ENCOUNTER: Initial ACUITY: 1 day PAIN SCORE: 8/10 LOCATION: Right foot FLUORO TIME: <<5.3>> minutes IMAGE SERIES: 13 ACCESS SITE: Left Femoral artery SEDATION TIME: <<40>> minutes CONTRAST: 1.) <<100>> <<cc>> Visipaque (iodixanol) MEDICATION(S): 1.) <<3>> mg midazolam (Versed) IV 2.) <<150>> mcg fentanyl (Sublimaze) IV DEVICE(S): 1.) Left common femoral artery <<6FR>> Angio-Seal PROCEDURE: F/U THRU EXISTING CATH, RIGHT 1. Followup thrombolysis 2. <<right lower extremity angiogram>> 3. <<mechanical thrombectomy of the right external iliac to common femoral artery bypass>> 4. Angiography of the access site 5. Angio-Seal closure device of the access site 6. Conscious sedation with continuous EKG and oximetry monitoring. Following TPA infusion the patient returned to the angiography suite for evaluation. <<Likely the patient is unchanged. Limb threatening ischemic changes of the right foot noted. Angiogr aphy through the sheath was performed showing no change. There is persistent complete occlusion of th e iliac bypass. No antegrade flow was seen through the iliac bypass or down the femoropopliteal bypas s. The femoropopliteal bypass and iliac bypass both show diffuse chronic thrombus throughout. An 068P enumbra thrombectomy catheter was utilized throughout the iliac bypass. The catheter was positioned w ithin the thrombus and suction applied. Following 2 minutes of the suction being applied the catheter was withdrawn and the sheath. Repeated attempts performed to reduce the thrombus load. These were un successful. A total of approximately 100 mL volume of aspirate was noted in the cancer. Angiography d isplays obturator collateralization of the profunda femoris with subsequent reconstitution of the abo ve-the-knee popliteal artery. Trifurcation vessels are limited in their evaluation due to the proxima l occlusion. All 3 are patent within the proximal calf. Distal to this there are poorly evaluated.>> Angiography of the common femoral artery was performed for evaluation prior to percutaneous closure d evice placement. The puncture site was closed with the prescribed closure device. The patient tolera trever the procedure well and there were no complications. Conscious sedation was performed with the prescribed dosages and duration as above in the presence of an independent trained radiology nurse to assist in the monitoring of the patient. EKG and oximetry remained stable throughout the procedure. CONCLUSION: 1. Followup angiography shows no significant change with diffuse chronic thrombus remaining throughou t the iliac bypass and femoropopliteal bypass. There remains complete occlusion. Failed attempts at m echanical thrombectomy. Donavan Lindsey Jr., MD on March 13, 2017 at 13:50 Board Certified Radiologist. This report was verified electronically.
[2017-03-13] MEDS: PANTOPRAZOLE SODIUM 40 MG VIAL IV SCH (14:00)
[2017-03-13] MEDS ORDERED: *morphine SULFATE 8 MG/ML PERIprocedure ONLY ONE ×3 (14:14→19:19)
[2017-03-13] MEDS ORDERED: HEPARIN-D5W INJ 250 ML IV SCH (14:15)
--- NOTE | 2017-03-13 14:47 | PD.CAR.PN ---
CVT Progress Note Subjective/Hospital Course: Patient with occlusion of the iliofemoral femoral popliteal bypass grafts underwent TPA lysis overnight TPA had to be stopped due to dropping fibrinogen level to less then 60 mg deciliter Repeat arteriogram this morning the reveals residual clot in common iliac to femoral artery and femoral popliteal graft and flow to the foot is via collaterals only Patient taken to the operating room today and successfully thromboembolectomized with a revision of the graft Foot is now warm I'm not really sure how long this is going the last considering patient's noncompliance and smoking history with tobacco abuse This was the last effort to reperfuse this leg and if that doesn't work patient will end up with the below-knee amputation Objective: Vital Signs Date Time Temp Pulse Resp B/P Pulse Ox O2 Delivery O2 Flow Rate FiO2 03/13/17 08:00 99.3 74 25 120/78 95 03/13/17 08:00 74 03/13/17 07:00 95 Nasal Cannula 2.00 03/13/17 06:00 63 03/13/17 04:00 60 03/13/17 04:00 98.6 60 15 141/64 96 03/13/17 02:00 62 03/13/17 00:00 98.4 68 18 152/69 96 03/13/17 00:00 62 03/12/17 22:00 60 03/12/17 20:00 59 03/12/17 20:00 97.9 59 15 148/70 96 03/12/17 19:05 22 03/12/17 19:00 96 Nasal Cannula 2.00 03/12/17 19:00 96 Nasal Cannula 2.00 Labs: Laboratory Tests Test 03/13/17 04:50 White Blood Count 8.3 TH/MM3 (4.0-11.0) Red Blood Count 4.53 MIL/MM3 (4.50-5.90) Hemoglobin 13.4 GM/DL (13.0-17.0) Hematocrit 41.1 % (39.0-51.0) Mean Corpuscular Volume 90.9 FL (80.0-100.0) Mean Corpuscular Hemoglobin 29.5 PG (27.0-34.0) Mean Corpuscular Hemoglobin 32.5 % Concent (32.0-36.0) Red Cell Distribution Width 16.9 % (11.6-17.2) Platelet Count 114 TH/MM3 (150-450) Mean Platelet Volume 8.9 FL (7.0-11.0) Neutrophils (%) (Auto) 76.2 % (16.0-70.0) Lymphocytes (%) (Auto) 14.2 % (9.0-44.0) Monocytes (%) (Auto) 8.8 % (0.0-8.0) Eosinophils (%) (Auto) 0.3 % (0.0-4.0) Basophils (%) (Auto) 0.5 % (0.0-2.0) Neutrophils # (Auto) 6.3 TH/MM3 (1.8-7.7) Lymphocytes # (Auto) 1.2 TH/MM3 (1.0-4.8) Monocytes # (Auto) 0.7 TH/MM3 (0-0.9) Eosinophils # (Auto) 0.0 TH/MM3 (0-0.4) Basophils # (Auto) 0.0 TH/MM3 (0-0.2) CBC Comment DIFF FINAL Differential Comment Activated Partial 33.6 SEC Thromboplast Time (24.3-30.1) Fibrinogen 64 mg/dL (181-393) Sodium Level 135 MEQ/L (136-145) Potassium Level 3.7 MEQ/L (3.5-5.1) Chloride Level 101 MEQ/L (98-107) Carbon Dioxide Level 26.6 MEQ/L (21.0-32.0) Anion Gap 7 MEQ/L (5-15) Blood Urea Nitrogen 7 MG/DL (7-18) Creatinine 0.59 MG/DL (0.60-1.30) Estimat Glomerular Filtration 143 ML/MIN Rate (>89) Random Glucose 97 MG/DL (74-106) Calcium Level 8.0 MG/DL (8.5-10.1) Total Bilirubin 0.7 MG/DL (0.2-1.0) Direct Bilirubin 0.2 MG/DL (0.0-0.2) Indirect Bilirubin 0.5 MG/DL (0.0-0.8) Aspartate Amino Transf 35 U/L (15-37) (AST/SGOT) Alanine Aminotransferase 32 U/L (12-78) (ALT/SGPT) Alkaline Phosphatase 43 U/L (45-117) Total Protein 6.3 GM/DL (6.4-8.2) Albumin 3.4 GM/DL (3.4-5.0) Triglycerides Level 53 MG/DL (42-150) Cholesterol Level 98 MG/DL (120-200) LDL Cholesterol 43 MG/DL (0-99) HDL Cholesterol 44.3 MG/DL (40.0-60.0) Cholesterol/HDL Ratio 2.21 RATIO Result Diagram: 03/13/17 0450 03/13/17 0450 Noé Nolan MD March 13, 2017 14:47
[2017-03-13 14:52] LABS: AUTOMATED NEUTROPHIL # 9.4 TH/MM3 (1.8-7.7); BASOPHIL % 0.4 % (0.0-2.0); EOSINOPHIL % 0.3 % (0.0-4.0); HEMATOCRIT 35.7 % (39.0-51.0); HEMO FLAGS DIFF FINAL; LYMPH % 5.1 % (9.0-44.0); LYMPHOCYTE # 0.5 TH/MM3 (1.0-4.8); MEAN CELL VOLUME 90.6 FL (80.0-100.0); MEAN CORPUSCULAR HEMOGLOBIN 29.9 PG (27.0-34.0); MONO % 4.2 % (0.0-8.0); PLATELET COUNT 109 TH/MM3 (150-450); RED BLOOD COUNT 3.94 MIL/MM3 (4.50-5.90); RED CELL DISTRIBUTION WIDTH 16.6 % (11.6-17.2); WHITE BLOOD COUNT 10.4 TH/MM3 (4.0-11.0)
[2017-03-13] MEDS: CLOPIDOGREL 75 MG TAB PO SCH (15:30)
[2017-03-13] MEDS ORDERED: *HYDROmorphone PF 1 MG VIAL PERIprocedural Use ONLY ONE (15:37)
[2017-03-13 16:13] LABS: APTT (PATIENT) 99.1 SEC (24.3-30.1)
[2017-03-13 17:09] LABS: INTERNATIONAL NORMALIZED RATIO 1.1 RATIO; PROTHROMBIN TIME - PATIENT 12.7 SEC (9.8-11.6)
[2017-03-13] MEDS: CILOSTAZOL 100 MG TAB PO SCH (17:41)
[2017-03-13 18:06] LABS: AUTOMATED NEUTROPHIL # 10.2 TH/MM3 (1.8-7.7); BASOPHIL % 0.2 % (0.0-2.0); EOSINOPHIL % 0.1 % (0.0-4.0); HEMATOCRIT 32.6 % (39.0-51.0); HEMO FLAGS DIFF FINAL; LYMPHOCYTE # 0.4 TH/MM3 (1.0-4.8); MEAN CELL VOLUME 90.7 FL (80.0-100.0); MEAN CORPUSCULAR HEMOGLOBIN 30.2 PG (27.0-34.0); MEAN CORPUSCULAR HGB CONC 33.2 % (32.0-36.0); MONO % 5.7 % (0.0-8.0); PLATELET COUNT 112 TH/MM3 (150-450); RED BLOOD COUNT 3.59 MIL/MM3 (4.50-5.90); RED CELL DISTRIBUTION WIDTH 16.5 % (11.6-17.2); WHITE BLOOD COUNT 11.3 TH/MM3 (4.0-11.0)
[2017-03-13 19:05] LABS: APTT (PATIENT) GREATER THAN 153.4 SEC (24.3-30.1)
[2017-03-13 21:41] LABS: APTT (PATIENT) 30.7 SEC (24.3-30.1)
[2017-03-14] VITALS (16 sets, daily range): BP systolic 86–117; BP diastolic 48–72; PULSE 77–107; RESP 13–23; TEMP 96.3–100; O2SAT 91–98
[2017-03-14] MEDS ORDERED: MORPHINE SULFATE 4 MG/ML INJ IV PUSH PRN (00:45)
[2017-03-14] MEDS ORDERED: oxyCODONE/ACETAMINOPHEN 5 MG/325 MG TAB PO PRN (00:45)
[2017-03-14] MEDS ORDERED: ceFAZolin 2 GM PREMIX 50 ML IV SCH (01:00)
[2017-03-14] MEDS ORDERED: PROTAMINE SULFATE 50 MG/5 ML VIAL ONE (01:22)
[2017-03-14] MEDS ORDERED: HEPARIN SODIUM - IV 10,000 UNITS/10 ML VIAL ONE (01:22)
[2017-03-14] MEDS ORDERED: HEPARIN SODIUM - SQ 10,000 UNITS/ML VIAL ONE (01:22)
--- NOTE | 2017-03-14 01:35 | PD.CAR.PN ---
CVT Progress Note Subjective/Hospital Course: Patient with occlusion of the iliofemoral femoral popliteal bypass grafts underwent TPA lysis overnight TPA had to be stopped due to dropping fibrinogen level to less then 60 mg deciliter Repeat arteriogram this morning the reveals residual clot in common iliac to femoral artery and femoral popliteal graft and flow to the foot is via collaterals only Patient taken to the operating room today and successfully thromboembolectomized with a revision of the graft Foot is now warm I'm not really sure how long this is going the last considering patient's noncompliance and smoking history with tobacco abuse This was the last effort to reperfuse this leg and if that doesn't work patient will end up with the below-knee amputation 03/14/17 Patient underwent successful revision and thromboembolectomy of the right iliofemoral and right femoropopliteal bypass graft with excellent outcome and strong dopplerable popliteal posterior tibial and anterior tibial pulses in the right foot Right foot remains warm I was called around ten passed midnight tonight by the floor nurse taking care of the patient stating that his contralateral i.e. left leg is now cold and sensate and patient just noticed this about 5 minutes before I immediately came to the bedside and indeed patient has no femoral-popliteal dissolves pedis posterior tibial or any other pulse Left foot is cold however motorically still preserved with decreased sensation over the plantar surface Patient states it's very painful The above-noted right side reconstructed looks great with good pulses At this point I believe patient has sustained thromboembolism of the left leg. It should be noted the patient was written for heparin drip and unfortunately it appears that initial value that was chosen is the reflection of the operative procedure heparinization on patient was given 5000 units of heparin so without any further consideration the nurse stop the heparin on the floor immediately after surgery and this was not restarted until 9 PM tonight and even then at a very low rate Patient will be taken to the operating room immediately for the thromboembolectomy of the left leg Objective: Vital Signs Date Time Temp Pulse Resp B/P Pulse Ox O2 Delivery O2 Flow Rate FiO2 03/13/17 20:00 96.6 89 18 105/58 94 03/13/17 16:15 97.7 62 23 107/59 99 Nasal Cannula 2 03/13/17 16:00 74 26 95/51 100 Nasal Cannula 2 03/13/17 15:45 67 18 114/52 99 Nasal Cannula 2 03/13/17 15:30 64 12 105/58 100 Nasal Cannula 2 03/13/17 15:15 63 13 108/53 100 Nasal Cannula 2 03/13/17 15:00 77 27 98/71 100 Nasal Cannula 2 03/13/17 14:45 65 13 150/53 100 Nasal Cannula 2 03/13/17 14:30 62 13 142/66 100 Nasal Cannula 2 03/13/17 14:15 62 23 141/70 100 Nasal Cannula 2 03/13/17 14:05 97.3 75 20 134/74 100 Nasal Cannula 2 03/13/17 08:00 99.3 74 25 120/78 95 03/13/17 08:00 74 03/13/17 07:00 95 Nasal Cannula 2.00 03/13/17 06:00 63 03/13/17 04:00 60 03/13/17 04:00 98.6 60 15 141/64 96 03/13/17 02:00 62 Labs: Laboratory Tests Test 03/13/17 03/13/17 03/13/17 03/13/17 14:35 15:32 17:51 21:07 White Blood Count 10.4 TH/MM3 11.3 TH/MM3 (4.0-11.0) (4.0-11.0) Red Blood Count 3.94 MIL/MM3 3.59 MIL/MM3 (4.50-5.90) (4.50-5.90) Hemoglobin 11.8 GM/DL 10.8 GM/DL (13.0-17.0) (13.0-17.0) Hematocrit 35.7 % 32.6 % (39.0-51.0) (39.0-51.0) Mean Corpuscular Volume 90.6 FL 90.7 FL (80.0-100.0) (80.0-100.0) Mean Corpuscular Hemoglobin 29.9 PG 30.2 PG (27.0-34.0) (27.0-34.0) Mean Corpuscular Hemoglobin 33.0 % 33.2 % Concent (32.0-36.0) (32.0-36.0) Red Cell Distribution Width 16.6 % 16.5 % (11.6-17.2) (11.6-17.2) Platelet Count 109 TH/MM3 112 TH/MM3 (150-450) (150-450) Mean Platelet Volume 9.0 FL 9.2 FL (7.0-11.0) (7.0-11.0) Neutrophils (%) (Auto) 90.0 % 90.0 % (16.0-70.0) (16.0-70.0) Lymphocytes (%) (Auto) 5.1 % 4.0 % (9.0-44.0) (9.0-44.0) Monocytes (%) (Auto) 4.2 % (0.0-8.0) 5.7 % (0.0-8.0) Eosinophils (%) (Auto) 0.3 % (0.0-4.0) 0.1 % (0.0-4.0) Basophils (%) (Auto) 0.4 % (0.0-2.0) 0.2 % (0.0-2.0) Neutrophils # (Auto) 9.4 TH/MM3 10.2 TH/MM3 (1.8-7.7) (1.8-7.7) Lymphocytes # (Auto) 0.5 TH/MM3 0.4 TH/MM3 (1.0-4.8) (1.0-4.8) Monocytes # (Auto) 0.4 TH/MM3 0.6 TH/MM3 (0-0.9) (0-0.9) Eosinophils # (Auto) 0.0 TH/MM3 0.0 TH/MM3 (0-0.4) (0-0.4) Basophils # (Auto) 0.0 TH/MM3 0.0 TH/MM3 (0-0.2) (0-0.2) CBC Comment DIFF FINAL DIFF FINAL Differential Comment Blood Type A POSITIVE Antibody Screen NEGATIVE Prothrombin Time 12.7 SEC (9.8-11.6) Prothromb Time International 1.1 RATIO Ratio Activated Partial 99.1 SEC GREATER THAN 30.7 SEC Thromboplast Time (24.3-30.1) 153.4 SEC (24.3-30.1) (24.3-30.1) Fibrinogen 136 mg/dL (227-377) Result Diagram: 03/13/17 1751 03/13/17 1362 Noé Nolan MD March 14, 2017 01:35
[2017-03-14] MEDS ORDERED: LIDOCAINE 1%/EPINEPHrine 1:100,000 SOLN 20 ML VIAL ONE ×2 (01:41)
[2017-03-14] MEDS ORDERED: POVIDONE IODINE 5% (ANTISEPSIS KIT) 4 APPLICATIONS EACH NARE PRN (02:00)
[2017-03-14] MEDS ORDERED: CHLORHEXIDINE GLUCONATE 2 % 1 PACK (2 CLOTHS) TOPICAL PRN (02:00)
[2017-03-14] MEDS ORDERED: LACTATED RINGER'S 1000 ML IV PRN (02:00)
[2017-03-14] MEDS ORDERED: HEPARIN SODIUM - IV 10,000 UNITS/10 ML VIAL IV ONE (02:19)
[2017-03-14 04:21] LABS: HEMATOCRIT 22.1 % (39.0-51.0); MEAN CELL VOLUME 91.3 FL (80.0-100.0); MEAN CORPUSCULAR HEMOGLOBIN 29.6 PG (27.0-34.0); MEAN CORPUSCULAR HGB CONC 32.4 % (32.0-36.0); PLATELET COUNT 95 TH/MM3 (150-450); RED BLOOD COUNT 2.43 MIL/MM3 (4.50-5.90); RED CELL DISTRIBUTION WIDTH 16.1 % (11.6-17.2); WHITE BLOOD COUNT 9.1 TH/MM3 (4.0-11.0)
[2017-03-14 04:22] LABS: REVIEW FLAG FINAL
[2017-03-14 04:36] LABS: BLOOD GAS BASE EXCESS -2.4 mmol/L (-2-2); BLOOD GAS CARBOXYHEMOGLOBIN 1.9 % (0-4); BLOOD GAS HCO3 22 mmol/L (22-26); BLOOD GAS O2 HGB SATURATION 97 % (90-100); BLOOD GAS OXYGEN CONTENT 12.9 Vol % (12.0-20.0); BLOOD GAS PCO2 37 mmHg (38-42); BLOOD GAS PO2 211 mmHg (61-120); BLOOD GAS TOTAL HGB 9.1 G/DL (12.0-16.0); TEMP CORR TO 98.6
[2017-03-14 04:37] LABS: CRITICAL VALUE NO; OXYGEN DEVICE OR GAS
[2017-03-14 04:38] LABS: DRAW SITE OR GAS; FIO2 57 %; STAT YES
[2017-03-14] MEDS ORDERED: NALOXONE HCL 0.4 MG/ML AMP IV PRN (05:00)
[2017-03-14] MEDS ORDERED: MORPHINE SULFATE 30 MG/30 ML PCA IV SCH (05:00)
[2017-03-14] MEDS: SODIUM CHLOR 0.9% 1000 ML INJ 1,000 ML IV SCH (05:06)
[2017-03-14] MEDS ORDERED: DO NOT ADM ANY ANTICOAGULANT DRUGS PRN (05:15)
[2017-03-14 05:24] LABS: INTERNATIONAL NORMALIZED RATIO 1.1 RATIO; PROTHROMBIN TIME - PATIENT 12.6 SEC (9.8-11.6)
[2017-03-14] MEDS ORDERED: MIDAZOLAM HCL 2 MG/2 ML VIAL ONE (05:45)
[2017-03-14] MEDS ORDERED: fentaNYL CITRATE 250 MCG/5 ML AMP ONE (05:46)
[2017-03-14] MEDS: PCA - TOTAL MG MORPHINE DELIVERED PER SHIFT SCH ×3 (06:00→22:00)
--- NOTE | 2017-03-14 06:46 | MP ---
cc: MADHAVI GROVER MD DATE OF SURGERY 03/13/2017 PREOPERATIVE DIAGNOSIS Occluded left common jsoxr-jw-tuebkyp and zqgywwy-mu-rqmbtfsbs PTFE graft, status post attempted tPA lysis. OPERATIVE PROCEDURE Popliteal and femoral exploration of the graft with iliofemoral and femoral-popliteal thromboembolectomy of the graft and revision of the iliofemoral portion of the graft with patch angioplasty. SURGEON MD Ovidio ANESTHESIA General. BLOOD LOSS 400 cc. PROCEDURE The patient was prepped and draped in the usual fashion and incision made in the groin, deepened down to the level of the graft. Here the patient had a vessel loop placed distal to the iliofemoral portion of the graft and then in the groin there is a patch overlying the common femoral and deep femoral arteries where the next graft continues down. Once the proximal control is obtained, the patient is given 5000 units of heparin and clamp is applied to the graft and longitudinal incision made in the patch. This reveals the vessel lumen full of clot. A #4 Diamond is passed down into the popliteal artery through the fem-pop graft and then down into the distal circulation. A large amount of clot is retrieved. This was done several times and then the graft is washed out with heparinized saline. Decision is made to obtain the arteriogram at the end of the procedure. Incision is now made at the popliteal space and the graft is isolated here. At this point the Diamond is passed down and then guided through the graft into the popliteal artery and then in distal circulation all the way down. Again, a fair amount of clot is retrieved this way and finally, after failure of retrieval there is no more graft to be retrieved. Again, the graft is irrigated with heparinized saline and allowed to back-bleed some. The DeBakey clamp is now removed from the iliofemoral portion of the graft and now the Diamond is placed. It is passed upward toward the aorta and then a large amount of clot retrieved with a final piece of clot that looks like a white thrombus. This results in brisk bleeding from the top down and inflow is now opened up. The clamp is reapplied and a 5-mm bovine pericardial patch is chosen and sewn in to repair the vessel. Then the blood flow is reestablished in the usual order and fashion. Due to the weakness of the entire graft and sort thin appearance of this Impra graft, decision is made not to puncture it and obtain an arteriogram here considering there is a brisk, palpable and dopplerable pulse in the groin, in the deep femoral artery, in the popliteal artery and then in the foot and dorsalis pedis artery. The foot readily warms up, so decision is made not to disturb all this. The incision is now irrigated and closed in layers with 2-0 Vicryl and 4-0 Monocryl. Benzoin and Steri-Strips applied. The patient tolerated the procedure well. Madhavi MCGREGOR/MARTÍNEZ /2:55 PM /6:33 AM
[2017-03-14 07:26] LABS: POTASSIUM 4.1 MEQ/L (3.5-5.1)
[2017-03-14 07:42] LABS: CALCIUM-PROTEIN CORRECTED 8.7 MG/DL (8.5-10.1)
[2017-03-14] MEDS: SODIUM CHLORIDE 0.9% FLUSH 10 ML FLUSH IV FLUSH SCH ×2 (07:55→21:59)
[2017-03-14] MEDS: LISINOPRIL 20 MG TAB PO SCH ×2 (08:46→21:43)
[2017-03-14] MEDS: FOLIC ACID 1 MG TAB PO SCH (08:46)
[2017-03-14] MEDS: CARVEDILOL 6.25 MG TAB PO SCH ×2 (08:46→21:43)
[2017-03-14] MEDS: ATORVASTATIN 10 MG TAB PO SCH (08:46)
[2017-03-14] MEDS: CLOPIDOGREL 75 MG TAB PO SCH (08:47)
[2017-03-14] MEDS: CILOSTAZOL 100 MG TAB PO SCH ×2 (08:47→16:19)
[2017-03-14] MEDS: THIAMINE HCL 100 MG TAB PO SCH (08:47)
--- NOTE | 2017-03-14 08:54 | MP ---
cc: MADHAVI GROVER MD DATE OF SURGERY 03/14/2017 PREOPERATIVE DIAGNOSES Occlusion of flow to the left leg. Ischemia of the left leg. POSTOPERATIVE DIAGNOSES Occlusion of flow to the left leg. Ischemia of the left leg. Left external iliac occlusion. Thromboembolism of the left external iliac, common femoral arteries and femoral-popliteal bypass graft. OPERATIVE PROCEDURE Retroperitoneal resection of the external iliac artery with common iliac to common femoral artery bypass graft with 8-mm Casselton-Matt and thromboembolectomy of the fem-pop graft through the revision of the graft and removal of seven endovascular stents. SURGEON MD Ovidio ANESTHESIA General. ESTIMATED BLOOD LOSS 400 cc. INDICATION FOR PROCEDURE This gentleman underwent yesterday right vascular system thromboembolectomy and revision and was doing well. However, around midnight tonight I was called by the nurse who noted the patient had a pale left leg. Indeed the patient has the above. PROCEDURE The patient is taken immediately to the operating room. First a groin incision is made in oblique fashion, deepened down to the anastomosis between the fem-pop graft and the [place] common femoral arteries, dissected free. I do not know who did the anastomosis but it looks pretty nice. Vessel loops were placed around this. The patient is given 5000 units of heparin and then the incision is made longitudinally in the vessel and the spatulated graft overlying it. It is noted that the contents of this area is basically an endovascular stent with large amount of clot in it. The stent is now removed and it comes off fairly easily. It is noted there is no flow from the top down. The inflow is completely occluded. I tried to pass Diamond catheter up there and that does not work either; it is blocked off. At this point the groin incision is extended curvilinear upward in order to expose external iliac artery at its entire length in the retroperitoneal oblique space. The retroperitoneum is now entered laterally and then the abdominal contents are deflected to the right exposing the external iliac artery all the way down to the common femoral artery. The external iliac artery is patent only in about for the most proximal 1-inch and then it is occluded. A vessel loop is placed around this and Satinsky clamp is applied here. The vessel is opened now longitudinally from the femoral down to the external iliac. It is noted the vessel was full of old stents and this is all blocked off. The stents are removed and now I reassess the area. There is no way to put a long patch on this. Rather decision is made to replace the entire vessel with graft. Prior to doing this, I went down with a Diamond catheter, through the common femoral artery, into the fem-pop graft that was placed at some point in the past. On the way back, clot starts coming back and then stent, after stent, after stent. The patient had about 6 or 7 stents in the graft and this all comes with a fresh clot out. There is backbleeding. This is flushed with heparinized saline and I passed a #4 Diamond a few more times down. The Diamond goes, as a [id number], all the way down. Arteriogram cannot be obtained for organizational reasons. The common azjzwii-dd-dcasnt iliac graft is now attended. First the proximal anastomosis is created under an oblique angle using 5-0 Prolene running stitch on a BB needle and then the distal anastomosis into the common femoral artery is created. This one is done under very sharp oblique angle, in other words graft is spatulated upon the vessel and this is also completed with running 5-0 Prolene. Once the anastomoses are completed, the graft is bled and then the blood flow was reestablished. Meticulous hemostasis is obtained with a few more 6-0 Prolenes for small bleeders. The patient now has bounding pulse in the graft and all the pulses checked down and the popliteal artery is strong on Doppler and the patient actually immediately has dorsalis pedis and posterior tibial pulse. The foot warms up readily and pinks up. The area is irrigated with copious amounts of saline, a 10 flat VIJAY placed in the area and then incision is closed with 0 Vicryl interrupted stitches for the deep layer which includes the internal oblique and transverse abdominis muscles and then superficial layer which includes the anterior rectus sheath edge. Subcutaneous Mahnaz's fascia is closed with 2-0 Vicryl and skin is closed with ruiz. At the end of procedure the foot is nice and pink. The patient is kept on heparin drip. Madhavi MCGREGOR/MARTÍNEZ /4:47 AM /8:38 AM
[2017-03-14] MEDS ORDERED: ICU - POTASSIUM PHOSPHATE MONOBASIC 500 MG TAB PO PRN (11:15)
[2017-03-14] MEDS ORDERED: ICU - D/C ICU ELECTROLYTE ORDERS PRN (11:15)
[2017-03-14] MEDS ORDERED: ICU - POTASSIUM CHLORIDE/AQUEOUS SOLN 20 MEQ/100 ML IVPB IV PRN (11:15)
[2017-03-14] MEDS ORDERED: ICU - MAGNESIUM OXIDE 400 MG TAB PO PRN (11:15)
[2017-03-14] MEDS ORDERED: ICU - MAGNESIUM SULFATE 2 GM/NS 100 ML IV PRN ×2 (11:15)
[2017-03-14] MEDS ORDERED: HEPARIN SODIUM - IV 10,000 UNITS/10 ML VIAL IV PRN ×2 (11:15)
[2017-03-14] MEDS ORDERED: POTASSIUM CHLORIDE 25 MEQ EFFERVESCENT TAB PO PRN (11:15)
[2017-03-14] MEDS ORDERED: ICU - MAGNESIUM SULFATE 4 GM/NS 100 ML IV PRN ×2 (11:15)
[2017-03-14] MEDS ORDERED: ICU - POTASSIUM CHLORIDE/AQUEOUS SOLN 40 MEQ/100 ML IVPB IV PRN (11:15)
[2017-03-14] MEDS ORDERED: ICU - SODIUM PHOSPHATE 30 MMOL/NS 250 ML IV PRN ×2 (11:15)
[2017-03-14] MEDS ORDERED: ICU - CALL ORDERING PHYSICIAN PRN (11:15)
[2017-03-14] MEDS ORDERED: NEOSTIGMINE 3 MG/3 ML SYR IV ONE (12:00)
[2017-03-14] MEDS ORDERED: PHENYLEPH/NS 1000 MCG/10 ML SYR IV ONE (12:00)
[2017-03-14] MEDS ORDERED: PROPOFOL 200 MG/20 ML AMP IV ONE (12:00)
[2017-03-14] MEDS ORDERED: LACTATED RINGER'S 1000 ML INJ 1,000 ML IV ONE (12:00)
[2017-03-14] MEDS ORDERED: ONDANSETRON HCL 4 MG/2 ML VIAL IV PUSH ONE (12:00)
[2017-03-14] MEDS ORDERED: SODIUM CHLOR 0.9% 1000 ML INJ 1,000 ML IV ONE (12:00)
[2017-03-14 12:51] LABS: APTT (PATIENT) 38.7 SEC (24.3-30.1)
[2017-03-14 12:51] LABS: MRSA PCR NEGATIVE (NEGATIVE); STAPH AUREUS PCR NEGATIVE (NEGATIVE)
--- NOTE | 2017-03-14 13:56 | PD.CAR.PN ---
CVT Progress Note Subjective/Hospital Course: Patient with occlusion of the iliofemoral femoral popliteal bypass grafts underwent TPA lysis overnight TPA had to be stopped due to dropping fibrinogen level to less then 60 mg deciliter Repeat arteriogram this morning the reveals residual clot in common iliac to femoral artery and femoral popliteal graft and flow to the foot is via collaterals only Patient taken to the operating room today and successfully thromboembolectomized with a revision of the graft Foot is now warm I'm not really sure how long this is going the last considering patient's noncompliance and smoking history with tobacco abuse This was the last effort to reperfuse this leg and if that doesn't work patient will end up with the below-knee amputation 03/14/17 Patient underwent successful revision and thromboembolectomy of the right iliofemoral and right femoropopliteal bypass graft with excellent outcome and strong dopplerable popliteal posterior tibial and anterior tibial pulses in the right foot Right foot remains warm I was called around ten passed midnight tonight by the floor nurse taking care of the patient stating that his contralateral i.e. left leg is now cold and sensate and patient just noticed this about 5 minutes before I immediately came to the bedside and indeed patient has no femoral-popliteal dissolves pedis posterior tibial or any other pulse Left foot is cold however motorically still preserved with decreased sensation over the plantar surface Patient states it's very painful The above-noted right side reconstructed looks great with good pulses At this point I believe patient has sustained thromboembolism of the left leg. It should be noted the patient was written for heparin drip and unfortunately it appears that initial value that was chosen is the reflection of the operative procedure heparinization on patient was given 5000 units of heparin so without any further consideration the nurse stop the heparin on the floor immediately after surgery and this was not restarted until 9 PM tonight and even then at a very low rate Patient will be taken to the operating room immediately for the thromboembolectomy of the left leg 03/14/17 Patient is now 12 hours status post left iliofemoral bypass graft and left femoral popliteal graft revision with thromboembolectomy and removal of numerous stents the same He is also 24 hours post right iliofemoral and femoral-popliteal reconstruction and antrum embolectomy of the right system Patient now has dopplerable popliteal and dopplerable strong dorsalis pedis posterior tibial pulses bilateral Feet are warm and well perfused with good capillary refill Patient is awake alert and oriented incisions are clean and dry VIJAY drainage is about 100 cc since this morning and becoming more serosanguineous Continue current care Will continue heparin drip until tomorrow and have patient on Plavix and Pletal Objective: Vital Signs Date Time Temp Pulse Resp B/P Pulse Ox O2 Delivery O2 Flow Rate FiO2 03/14/17 12:15 113/52 03/14/17 12:00 98.3 77 13 86/53 91 Arterial Line 03/14/17 12:00 77 03/14/17 10:00 79 03/14/17 08:00 98.2 96 15 111/54 98 03/14/17 08:00 82 03/14/17 07:00 96 Nasal Cannula 2.00 03/14/17 06:15 16 03/14/17 06:00 100.0 100 14 96 98/48 03/14/17 06:00 16 03/14/17 06:00 100 03/14/17 05:30 82 16 114/56 98 Nasal Cannula 2 105/48 03/14/17 05:15 89 14 100/57 98 Nasal Cannula 2 84/44 03/14/17 05:00 99 13 119/62 100 Nasal Cannula 2 110/50 03/14/17 04:48 99.1 102 16 125/56 100 Nasal Cannula 2 03/14/17 00:00 96.3 78 18 117/72 96 03/13/17 22:04 93 Nasal Cannula 2.00 03/13/17 21:49 94 Nasal Cannula 2.00 03/13/17 21:49 59 03/13/17 20:00 96.6 89 18 105/58 94 03/13/17 16:15 97.7 62 23 107/59 99 Nasal Cannula 2 03/13/17 16:00 74 26 95/51 100 Nasal Cannula 2 03/13/17 15:45 67 18 114/52 99 Nasal Cannula 2 03/13/17 15:30 64 12 105/58 100 Nasal Cannula 2 03/13/17 15:15 63 13 108/53 100 Nasal Cannula 2 03/13/17 15:00 77 27 98/71 100 Nasal Cannula 2 03/13/17 14:45 65 13 150/53 100 Nasal Cannula 2 03/13/17 14:30 62 13 142/66 100 Nasal Cannula 2 03/13/17 14:15 62 23 141/70 100 Nasal Cannula 2 03/13/17 14:05 97.3 75 20 134/74 100 Nasal Cannula 2 Labs: Laboratory Tests Test 03/14/17 03/14/17 03/14/17 03/14/17 02:59 03:51 04:20 06:34 Blood Type A POSITIVE Crossmatch Leukocyte-Reduced Red Blood Cells Blood Bank Comment White Blood Count 9.1 TH/MM3 (4.0-11.0) Red Blood Count 2.43 MIL/MM3 (4.50-5.90) Hemoglobin 7.2 GM/DL (13.0-17.0) Hematocrit 22.1 % (39.0-51.0) Mean Corpuscular Volume 91.3 FL (80.0-100.0) Mean Corpuscular Hemoglobin 29.6 PG (27.0-34.0) Mean Corpuscular Hemoglobin 32.4 % Concent (32.0-36.0) Red Cell Distribution Width 16.1 % (11.6-17.2) Platelet Count 95 TH/MM3 (150-450) Mean Platelet Volume 9.3 FL (7.0-11.0) Prothrombin Time 12.6 SEC (9.8-11.6) Prothromb Time International 1.1 RATIO Ratio Activated Partial 151.0 SEC Thromboplast Time (24.3-30.1) Blood Gas Puncture Site OR GAS Blood Gas Patient Temperature 98.6 Blood Gas HCO3 22 mmol/L (22-26) Blood Gas Base Excess -2.4 mmol/L (-2-2) Blood Gas Oxygen Saturation 97 % (90-100) Arterial Blood pH 7.39 (7.380-7.420) Arterial Blood Partial 37 mmHg (38-42) Pressure CO2 Arterial Blood Partial 211 mmHg Pressure O2 (61-120) Arterial Blood Oxygen Content 12.9 Vol % (12.0-20.0) Arterial Blood 1.9 % (0-4) Carboxyhemoglobin Arterial Blood Methemoglobin 1.0 % (0-2) Blood Gas Hemoglobin 9.1 G/DL (12.0-16.0) Oxygen Delivery Device OR GAS Blood Gas Inspired Oxygen 57 % Sodium Level 134 MEQ/L (136-145) Potassium Level 4.1 MEQ/L (3.5-5.1) Chloride Level 100 MEQ/L (98-107) Carbon Dioxide Level 26.0 MEQ/L (21.0-32.0) Anion Gap 8 MEQ/L (5-15) Blood Urea Nitrogen 12 MG/DL (7-18) Creatinine 0.74 MG/DL (0.60-1.30) Estimat Glomerular Filtration 110 ML/MIN Rate (>89) Random Glucose 150 MG/DL (74-106) Calcium Level 7.2 MG/DL (8.5-10.1) Protein Corrected Calcium 8.7 MG/DL (8.5-10.1) Total Protein 4.5 GM/DL (6.4-8.2) Test 03/14/17 03/14/17 08:55 12:25 Nasal Screen MRSA (PCR) NEGATIVE (NEGATIVE) Staphylococcus aureus NEGATIVE (PCR)(LAB) (NEGATIVE) Activated Partial 38.7 SEC Thromboplast Time (24.3-30.1) Result Diagram: 03/14/17 0351 03/14/17 0634 Noé Nolan MD March 14, 2017 13:56
[2017-03-14] MEDS: PANTOPRAZOLE SODIUM 40 MG VIAL IV SCH (14:42)
--- NOTE | 2017-03-14 16:33 | EKG ---
Date Performed: 03/14/2017 Time Performed: 01:09:50 PTAGE: 57 years EKG: Sinus rhythm Normal ECG Compared to prior study of 10/02/2016, the rate has slowed. Nonspecific ST-T changes have resolved. DOCTOR: Bipin Baez Interpretating Date/Time 03/14/2017 16:32:28
[2017-03-14 18:12] LABS: APTT (PATIENT) 41.5 SEC (24.3-30.1)
[2017-03-15] VITALS (12 sets, daily range): BP systolic 107–159; BP diastolic 56–78; PULSE 91–116; RESP 16–33; TEMP 96.5–99.7; O2SAT 92–98
[2017-03-15 00:25] LABS: APTT (PATIENT) 40.4 SEC (24.3-30.1)
[2017-03-15] MEDS: HEPARIN 25,000 UNITS-D5W 250 ML - PREMIX IV SCH (01:37)
[2017-03-15] MEDS: SODIUM CHLOR 0.9% 1000 ML INJ 1,000 ML IV SCH (01:39)
[2017-03-15 05:43] LABS: HEMATOCRIT 32.1 % (39.0-51.0); MEAN CELL VOLUME 86.5 FL (80.0-100.0); MEAN CORPUSCULAR HEMOGLOBIN 30.1 PG (27.0-34.0); MEAN CORPUSCULAR HGB CONC 34.8 % (32.0-36.0); PLATELET COUNT 81 TH/MM3 (150-450); RED BLOOD COUNT 3.71 MIL/MM3 (4.50-5.90); RED CELL DISTRIBUTION WIDTH 15.3 % (11.6-17.2); WHITE BLOOD COUNT 9.7 TH/MM3 (4.0-11.0)
[2017-03-15 05:45] LABS: REVIEW FLAG FINAL
[2017-03-15 05:47] LABS: APTT (PATIENT) 38.9 SEC (24.3-30.1)
[2017-03-15] MEDS: PCA - TOTAL MG MORPHINE DELIVERED PER SHIFT SCH ×3 (06:00→21:19)
[2017-03-15] MEDS: CILOSTAZOL 100 MG TAB PO SCH ×2 (06:18→16:34)
[2017-03-15] MEDS: THIAMINE HCL 100 MG TAB PO SCH (07:50)
[2017-03-15] MEDS: SODIUM CHLORIDE 0.9% FLUSH 10 ML FLUSH IV FLUSH SCH ×2 (07:50→20:25)
[2017-03-15] MEDS: CARVEDILOL 6.25 MG TAB PO SCH ×2 (07:51→20:27)
[2017-03-15] MEDS: FOLIC ACID 1 MG TAB PO SCH (07:51)
[2017-03-15] MEDS: CLOPIDOGREL 75 MG TAB PO SCH (07:51)
[2017-03-15] MEDS: ATORVASTATIN 10 MG TAB PO SCH (07:51)
[2017-03-15] MEDS: LISINOPRIL 20 MG TAB PO SCH ×2 (07:52→20:27)
--- NOTE | 2017-03-15 13:07 | PD.CAR.PN ---
CVT Progress Note Subjective/Hospital Course: Patient with occlusion of the iliofemoral femoral popliteal bypass grafts underwent TPA lysis overnight TPA had to be stopped due to dropping fibrinogen level to less then 60 mg deciliter Repeat arteriogram this morning the reveals residual clot in common iliac to femoral artery and femoral popliteal graft and flow to the foot is via collaterals only Patient taken to the operating room today and successfully thromboembolectomized with a revision of the graft Foot is now warm I'm not really sure how long this is going the last considering patient's noncompliance and smoking history with tobacco abuse This was the last effort to reperfuse this leg and if that doesn't work patient will end up with the below-knee amputation 03/14/17 Patient underwent successful revision and thromboembolectomy of the right iliofemoral and right femoropopliteal bypass graft with excellent outcome and strong dopplerable popliteal posterior tibial and anterior tibial pulses in the right foot Right foot remains warm I was called around ten passed midnight tonight by the floor nurse taking care of the patient stating that his contralateral i.e. left leg is now cold and sensate and patient just noticed this about 5 minutes before I immediately came to the bedside and indeed patient has no femoral-popliteal dissolves pedis posterior tibial or any other pulse Left foot is cold however motorically still preserved with decreased sensation over the plantar surface Patient states it's very painful The above-noted right side reconstructed looks great with good pulses At this point I believe patient has sustained thromboembolism of the left leg. It should be noted the patient was written for heparin drip and unfortunately it appears that initial value that was chosen is the reflection of the operative procedure heparinization on patient was given 5000 units of heparin so without any further consideration the nurse stop the heparin on the floor immediately after surgery and this was not restarted until 9 PM tonight and even then at a very low rate Patient will be taken to the operating room immediately for the thromboembolectomy of the left leg 03/14/17 Patient is now 12 hours status post left iliofemoral bypass graft and left femoral popliteal graft revision with thromboembolectomy and removal of numerous stents the same He is also 24 hours post right iliofemoral and femoral-popliteal reconstruction and antrum embolectomy of the right system Patient now has dopplerable popliteal and dopplerable strong dorsalis pedis posterior tibial pulses bilateral Feet are warm and well perfused with good capillary refill Patient is awake alert and oriented incisions are clean and dry VIJAY drainage is about 100 cc since this morning and becoming more serosanguineous Continue current care Will continue heparin drip until tomorrow and have patient on Plavix and Pletal 03/15/17 Vital signs stable hemoglobin is stable Incisions are clean and dry minimal drainage from [place] Patient has palpable femoral pulses and dopplerable popliteal dissolves pedis and posterior tibial bilateral Feet are warm and well-perfused We'll keep on heparin for another day and then probably switch to Plavix and Pletal only DC VIJAY Change dressing Out of bed and adjust pain meds Objective: Vital Signs Date Time Temp Pulse Resp B/P Pulse Ox O2 Delivery O2 Flow Rate FiO2 03/15/17 12:00 96.5 100 16 107/56 92 03/15/17 10:09 91 03/15/17 09:38 92 21 03/15/17 08:55 20 03/15/17 08:00 100 03/15/17 08:00 99.0 100 27 118/67 92 03/15/17 07:00 92 Room Air 03/15/17 06:00 99 03/15/17 06:00 20 03/15/17 04:00 98.2 105 33 159/67 93 03/15/17 02:00 101 03/15/17 00:00 104 03/15/17 00:00 98.0 16 142/63 98 03/14/17 22:00 107 03/14/17 22:00 20 03/14/17 20:06 92 Nasal Cannula 1.50 03/14/17 20:00 98.0 107 23 111/57 03/14/17 20:00 92 03/14/17 19:00 96 Nasal Cannula 2.00 03/14/17 18:14 98.6 104 20 90/54 97 03/14/17 18:01 106 03/14/17 17:59 98.1 106 22 88/52 93 03/14/17 17:20 98.1 107 15 116/59 94 03/14/17 16:59 97.9 90 13 92/54 92 03/14/17 16:12 98.6 92 15 88/51 95 03/14/17 16:12 92 03/14/17 14:00 96 03/14/17 14:00 22 Labs: Laboratory Tests Test 03/15/17 03/15/17 04:28 04:30 White Blood Count 9.7 TH/MM3 (4.0-11.0) Red Blood Count 3.71 MIL/MM3 (4.50-5.90) Hemoglobin 11.2 GM/DL (13.0-17.0) Hematocrit 32.1 % (39.0-51.0) Mean Corpuscular Volume 86.5 FL (80.0-100.0) Mean Corpuscular Hemoglobin 30.1 PG (27.0-34.0) Mean Corpuscular Hemoglobin 34.8 % Concent (32.0-36.0) Red Cell Distribution Width 15.3 % (11.6-17.2) Platelet Count 81 TH/MM3 (150-450) Mean Platelet Volume 9.6 FL (7.0-11.0) Activated Partial 38.9 SEC Thromboplast Time (24.3-30.1) Result Diagram: 03/15/17 0428 03/14/17 0634 Noé Nolan MD March 15, 2017 13:07
[2017-03-15 14:34] LABS: APTT (PATIENT) 37.8 SEC (24.3-30.1)
[2017-03-15] MEDS: PANTOPRAZOLE SODIUM 40 MG VIAL IV SCH (15:12)
[2017-03-15 20:09] LABS: APTT (PATIENT) 39.4 SEC (24.3-30.1)
[2017-03-16] MEDS: HEPARIN 25,000 UNITS-D5W 250 ML - PREMIX IV SCH (02:56)
[2017-03-16 04:00] VITALS: BP 102/60; PULSE 100; RESP 17; TEMP 99.8; O2SAT 95
[2017-03-16 04:10] LABS: HEMATOCRIT 28.7 % (39.0-51.0); MEAN CORPUSCULAR HEMOGLOBIN 30.2 PG (27.0-34.0); MEAN CORPUSCULAR HGB CONC 34.8 % (32.0-36.0); PLATELET COUNT 98 TH/MM3 (150-450); RED CELL DISTRIBUTION WIDTH 15.1 % (11.6-17.2); WHITE BLOOD COUNT 9.1 TH/MM3 (4.0-11.0)
[2017-03-16 04:28] LABS: REVIEW FLAG FINAL
[2017-03-16 04:35] LABS: APTT (PATIENT) 43.2 SEC (24.3-30.1)
[2017-03-16] MEDS: PCA - TOTAL MG MORPHINE DELIVERED PER SHIFT SCH ×2 (06:00→12:08)
[2017-03-16] MEDS: CILOSTAZOL 100 MG TAB PO SCH ×2 (06:02→16:03)
[2017-03-16] MEDS: SODIUM CHLOR 0.9% 1000 ML INJ 1,000 ML IV SCH (06:03)
[2017-03-16 08:00] VITALS: BP 125/64; PULSE 94; RESP 22; TEMP 98.5; O2SAT 91
[2017-03-16] MEDS: LISINOPRIL 20 MG TAB PO SCH ×2 (08:34→21:28)
[2017-03-16] MEDS: THIAMINE HCL 100 MG TAB PO SCH (08:34)
[2017-03-16] MEDS: CLOPIDOGREL 75 MG TAB PO SCH (08:35)
[2017-03-16] MEDS: ATORVASTATIN 10 MG TAB PO SCH (08:35)
[2017-03-16] MEDS: CARVEDILOL 6.25 MG TAB PO SCH ×2 (08:35→21:28)
[2017-03-16] MEDS: FOLIC ACID 1 MG TAB PO SCH (08:36)
[2017-03-16] MEDS: SODIUM CHLORIDE 0.9% FLUSH 10 ML FLUSH IV FLUSH SCH ×2 (08:36→21:31)
[2017-03-16 10:57] LABS: APTT (PATIENT) 40.6 SEC (24.3-30.1)
--- NOTE | 2017-03-16 11:40 | PD.CAR.PN ---
CVT Progress Note Subjective/Hospital Course: Patient with occlusion of the iliofemoral femoral popliteal bypass grafts underwent TPA lysis overnight TPA had to be stopped due to dropping fibrinogen level to less then 60 mg deciliter Repeat arteriogram this morning the reveals residual clot in common iliac to femoral artery and femoral popliteal graft and flow to the foot is via collaterals only Patient taken to the operating room today and successfully thromboembolectomized with a revision of the graft Foot is now warm I'm not really sure how long this is going the last considering patient's noncompliance and smoking history with tobacco abuse This was the last effort to reperfuse this leg and if that doesn't work patient will end up with the below-knee amputation 03/14/17 Patient underwent successful revision and thromboembolectomy of the right iliofemoral and right femoropopliteal bypass graft with excellent outcome and strong dopplerable popliteal posterior tibial and anterior tibial pulses in the right foot Right foot remains warm I was called around ten passed midnight tonight by the floor nurse taking care of the patient stating that his contralateral i.e. left leg is now cold and sensate and patient just noticed this about 5 minutes before I immediately came to the bedside and indeed patient has no femoral-popliteal dissolves pedis posterior tibial or any other pulse Left foot is cold however motorically still preserved with decreased sensation over the plantar surface Patient states it's very painful The above-noted right side reconstructed looks great with good pulses At this point I believe patient has sustained thromboembolism of the left leg. It should be noted the patient was written for heparin drip and unfortunately it appears that initial value that was chosen is the reflection of the operative procedure heparinization on patient was given 5000 units of heparin so without any further consideration the nurse stop the heparin on the floor immediately after surgery and this was not restarted until 9 PM tonight and even then at a very low rate Patient will be taken to the operating room immediately for the thromboembolectomy of the left leg 03/14/17 Patient is now 12 hours status post left iliofemoral bypass graft and left femoral popliteal graft revision with thromboembolectomy and removal of numerous stents the same He is also 24 hours post right iliofemoral and femoral-popliteal reconstruction and antrum embolectomy of the right system Patient now has dopplerable popliteal and dopplerable strong dorsalis pedis posterior tibial pulses bilateral Feet are warm and well perfused with good capillary refill Patient is awake alert and oriented incisions are clean and dry VIJAY drainage is about 100 cc since this morning and becoming more serosanguineous Continue current care Will continue heparin drip until tomorrow and have patient on Plavix and Pletal 03/15/17 Vital signs stable hemoglobin is stable Incisions are clean and dry minimal drainage from [place] Patient has palpable femoral pulses and dopplerable popliteal dissolves pedis and posterior tibial bilateral Feet are warm and well-perfused We'll keep on heparin for another day and then probably switch to Plavix and Pletal only DC VIJAY Change dressing Out of bed and adjust pain meds 03/16/17 Patient doing very well Groin incisions are clean and dry VIJAY has been removed Patient is out of bed Patient's palpable femoral pulses strong dopplerable popliteal pulses and palpable strong dorsalis pedis pulses bilateral With reconstruction of the left leg this patient has benefited greatly by having the stents removed from his femoropopliteal graft and inflow corrected The situation with the right leg is more complex however it is doing fine and if patient does not smoke this may stay open for a while We will remove [employer] pump and start patient on oral pain medication Stop heparin Likely patient will be discharged tomorrow Objective: Vital Signs Date Time Temp Pulse Resp B/P Pulse Ox O2 Delivery O2 Flow Rate FiO2 03/16/17 08:00 98.5 94 22 125/64 91 03/16/17 04:00 99.8 100 17 102/60 95 03/15/17 23:41 99.7 110 18 121/69 97 03/15/17 21:21 98 03/15/17 21:19 16 03/15/17 19:00 99.0 116 19 137/78 98 03/15/17 16:00 99.0 108 16 145/67 92 03/15/17 14:00 16 03/15/17 12:00 96.5 100 16 107/56 92 Labs: Laboratory Tests Test 03/16/17 03/16/17 03:40 09:55 White Blood Count 9.1 TH/MM3 (4.0-11.0) Red Blood Count 3.30 MIL/MM3 (4.50-5.90) Hemoglobin 10.0 GM/DL (13.0-17.0) Hematocrit 28.7 % (39.0-51.0) Mean Corpuscular Volume 87.0 FL (80.0-100.0) Mean Corpuscular Hemoglobin 30.2 PG (27.0-34.0) Mean Corpuscular Hemoglobin 34.8 % Concent (32.0-36.0) Red Cell Distribution Width 15.1 % (11.6-17.2) Platelet Count 98 TH/MM3 (150-450) Mean Platelet Volume 9.2 FL (7.0-11.0) Activated Partial 43.2 SEC 40.6 SEC Thromboplast Time (24.3-30.1) (24.3-30.1) Result Diagram: 03/16/17 0340 03/14/17 0634 Noé Nolan MD March 16, 2017 11:40
[2017-03-16] MEDS ORDERED: MORPHINE SULFATE 4 MG/ML INJ IV PUSH PRN (11:45)
[2017-03-16 11:59] VITALS: BP 137/60; PULSE 101; RESP 20; TEMP 97.5; O2SAT 91
[2017-03-16 16:00] VITALS: BP 106/52; PULSE 104; RESP 20; TEMP 99.3; O2SAT 91
[2017-03-16] MEDS: oxyCODONE/ACETAMINOPHEN 7.5 MG/325 MG TAB PO PRN ×2 (16:06→21:29)
[2017-03-16 20:20] VITALS: BP 107/50; PULSE 109; RESP 18; TEMP 98; O2SAT 93
[2017-03-17 00:20] VITALS: BP 103/54; PULSE 89; RESP 18; TEMP 99.1; O2SAT 91
[2017-03-17 04:20] VITALS: BP 125/60; PULSE 97; RESP 17; TEMP 99.4; O2SAT 91
[2017-03-17] MEDS: CILOSTAZOL 100 MG TAB PO SCH (07:14)
[2017-03-17 08:00] VITALS: BP 102/54; PULSE 90; RESP 15; TEMP 99.5; O2SAT 91
[2017-03-17] MEDS: THIAMINE HCL 100 MG TAB PO SCH (08:51)
[2017-03-17] MEDS: FOLIC ACID 1 MG TAB PO SCH (08:51)
[2017-03-17] MEDS: CLOPIDOGREL 75 MG TAB PO SCH (08:52)
[2017-03-17] MEDS: ATORVASTATIN 10 MG TAB PO SCH (08:52)
[2017-03-17] MEDS: oxyCODONE/ACETAMINOPHEN 7.5 MG/325 MG TAB PO PRN ×2 (08:56→13:59)
[2017-03-17] MEDS: CARVEDILOL 6.25 MG TAB PO SCH (08:56)
[2017-03-17] MEDS: LISINOPRIL 20 MG TAB PO SCH (08:57)
[2017-03-17] MEDS: SODIUM CHLORIDE 0.9% FLUSH 10 ML FLUSH IV FLUSH SCH (08:59)
[2017-03-17] MEDS ORDERED: CILO100T PO (11:52)
[2017-03-17] MEDS ORDERED: PERC7.5T13 PO (11:55)
--- NOTE | 2017-03-17 11:56 | PD.CAR.PN ---
CVT Progress Note Subjective/Hospital Course: Patient with occlusion of the iliofemoral femoral popliteal bypass grafts underwent TPA lysis overnight TPA had to be stopped due to dropping fibrinogen level to less then 60 mg deciliter Repeat arteriogram this morning the reveals residual clot in common iliac to femoral artery and femoral popliteal graft and flow to the foot is via collaterals only Patient taken to the operating room today and successfully thromboembolectomized with a revision of the graft Foot is now warm I'm not really sure how long this is going the last considering patient's noncompliance and smoking history with tobacco abuse This was the last effort to reperfuse this leg and if that doesn't work patient will end up with the below-knee amputation 03/14/17 Patient underwent successful revision and thromboembolectomy of the right iliofemoral and right femoropopliteal bypass graft with excellent outcome and strong dopplerable popliteal posterior tibial and anterior tibial pulses in the right foot Right foot remains warm I was called around ten passed midnight tonight by the floor nurse taking care of the patient stating that his contralateral i.e. left leg is now cold and sensate and patient just noticed this about 5 minutes before I immediately came to the bedside and indeed patient has no femoral-popliteal dissolves pedis posterior tibial or any other pulse Left foot is cold however motorically still preserved with decreased sensation over the plantar surface Patient states it's very painful The above-noted right side reconstructed looks great with good pulses At this point I believe patient has sustained thromboembolism of the left leg. It should be noted the patient was written for heparin drip and unfortunately it appears that initial value that was chosen is the reflection of the operative procedure heparinization on patient was given 5000 units of heparin so without any further consideration the nurse stop the heparin on the floor immediately after surgery and this was not restarted until 9 PM tonight and even then at a very low rate Patient will be taken to the operating room immediately for the thromboembolectomy of the left leg 03/14/17 Patient is now 12 hours status post left iliofemoral bypass graft and left femoral popliteal graft revision with thromboembolectomy and removal of numerous stents the same He is also 24 hours post right iliofemoral and femoral-popliteal reconstruction and antrum embolectomy of the right system Patient now has dopplerable popliteal and dopplerable strong dorsalis pedis posterior tibial pulses bilateral Feet are warm and well perfused with good capillary refill Patient is awake alert and oriented incisions are clean and dry VIJAY drainage is about 100 cc since this morning and becoming more serosanguineous Continue current care Will continue heparin drip until tomorrow and have patient on Plavix and Pletal 03/15/17 Vital signs stable hemoglobin is stable Incisions are clean and dry minimal drainage from [place] Patient has palpable femoral pulses and dopplerable popliteal dissolves pedis and posterior tibial bilateral Feet are warm and well-perfused We'll keep on heparin for another day and then probably switch to Plavix and Pletal only DC VIJAY Change dressing Out of bed and adjust pain meds 03/16/17 Patient doing very well Groin incisions are clean and dry VIJAY has been removed Patient is out of bed Patient's palpable femoral pulses strong dopplerable popliteal pulses and palpable strong dorsalis pedis pulses bilateral With reconstruction of the left leg this patient has benefited greatly by having the stents removed from his femoropopliteal graft and inflow corrected The situation with the right leg is more complex however it is doing fine and if patient does not smoke this may stay open for a while We will remove [employer] pump and start patient on oral pain medication Stop heparin Likely patient will be discharged tomorrow 03/17/2017 Incisions clean and dry patient's palpable femoral pulses and at this point palpable dorsalis pedis pulses bilateral Posterior tibial is dopplerable bilateral Feet are warm with excellent capillary refill Patient is ready to be discharged with instruction for follow-up in my office in about 2 weeks Objective: Vital Signs Date Time Temp Pulse Resp B/P Pulse Ox O2 Delivery O2 Flow Rate FiO2 03/17/17 08:00 99.5 90 15 102/54 91 03/17/17 04:20 99.4 97 17 125/60 91 03/17/17 00:20 99.1 89 18 103/54 91 03/16/17 23:19 Room Air 03/16/17 22:36 18 03/16/17 20:20 98.0 109 18 107/50 93 03/16/17 16:00 99.3 104 20 106/52 91 03/16/17 12:08 18 03/16/17 11:59 97.5 101 20 137/60 91 Result Diagram: 03/16/17 0340 03/14/17 0634 Noé Nolan MD March 17, 2017 11:56
[2017-03-17 12:00] VITALS: BP 118/58; PULSE 89; RESP 16; TEMP 99.2; O2SAT 90
--- NOTE | 2017-03-18 12:02 | RADRPT ---
EXAM DATE/TIME: 03/12/2017 15:43 [place] COMPARISON: No previous studies available for comparison. INDICATIONS : Patient with history of peripheral vascular disease in need of lower extremity angiogram. MEDICAL HISTORY : PVD, CAD, HTN, HLD, DC, Irregular heartbeat SURGICAL HISTORY : Femoropopliteal bypass , Cardiac stent, Lumbar surgery ENCOUNTER: Initial ACUITY: 1 day PAIN SCORE: 3/10 LOCATION: Right calf FLUORO TIME: 12 minutes IMAGE SERIES: 7 ACCESS SITE: Left Femoral artery SEDATION TIME: 40 minutes CONTRAST: 1.) 60 cc Visipaque (iodixanol) MEDICATION(S): 1.) 3 mg midazolam (Versed) IV 2.) 150 mcg fentanyl (Sublimaze) IV DEVICE(S): 1.) Right popliteal artery 5F [id number] Infusion catheter PROCEDURE : 1. Ultrasound-guided puncture of the access site. 2. Conscious sedation with continuous EKG and oximetry monitoring. 3. Angiography of the right below-knee popliteal 4. Infusion for thrombolysis The risks, benefits and alternatives to the procedure were explained and verbal and written consent w as obtained. The site was prepped in sterile fashion. Full sterile technique was used, including ca p, mask, sterile gloves and gown and a large sterile sheet. Hand hygiene and 2% chlorhexidine and/or betadine/alcohol prep was utilized per protocol for cutaneous antisepsis. The skin and subcutaneous tissues were infiltrated with local anesthetic solution. With ultrasound and fluoroscopic guidance the prescribed common femoral artery was punctured and a va scular sheath was placed. Omni Flush catheter was used to select the contralateral iliac system. Fluoroscopic images showed sto wilmer in the right iliac system. Contrast injection of the Omni Flush catheter was advanced into the co ntralateral iliac system shows a bifurcated bypass graft above the level of the external iliac stents which is patent in the hypogastric but occludes to the iliofemoral bypass soon after takeoff. Over a stiff angled Glidewire, a 6 Citizen [place] Rabbe sheath was advanced into the contralateral iliac system and bifurcated graft. A hockey-stick catheter and Roadrunner wire were then manipulated down to the comm on femoral. Contrast injection showed patent profunda with occlusion of the cheesh-na SFA and bypass gra fts. Catheter and wire were manipulated into the most recent bypass graft. Position was confirmed positive contrast. Catheter and wire were then manipulated through the bypass graft into the below-knee popli teal. Contrast injection showed a trifurcation vessels centrally with sluggish runoff due to the lack of inflow. A 50 cm, 5 [place] infusion catheter was then advanced over the wire. This extended from the patent be low knee popliteal centrally to the iliofemoral bypass. TPA was then infused through the infusion cat heter as well as the carrier sheath AP occlusion in the bifurcated iliofemoral bypass. Conscious sedation was performed with the prescribed dosages and duration as above in the presence of an independent trained radiology nurse to assist in the monitoring of the patient. EKG and oximetry remained stable throughout the procedure. CONCLUSION: 1. Uncomplicated initiation of thrombolytic therapy as above. 2. Patient has a right iliofemoral and a right femoral-popliteal bypass, both of which are occluded. 3. Runoff appears to be adequate, however Benji Goodman MD on March 18, 2017 at 11:54 Board Certified Radiologist. This report was verified electronically.
[2017-04-04] MEDS ORDERED: PLAV75TA29 PO (16:23)
[2017-04-04] MEDS ORDERED: HYDR25TA5 PO (16:24)
--- NOTE | 2017-04-17 09:04 | MD ---
cc: NOÉ GROVER MD ADMISSION DATE: 03/12/2017 DISCHARGE DATE: 03/17/2017 HISTORY OF PRESENT DISEASE The patient is a pleasant 57-year-old gentleman with occlusion of the iliofemoral and femoral-popliteal bypass graft for which he underwent TPA lysis. Repeat arteriogram showed residual clotted common iliac and femoral arteries and femoral-popliteal graft. The patient was taken to the operating room and underwent retroperitoneal approach to the aorta and common iliac to the common femoral artery bypass with PTFE 8 mm graft and then thromboembolectomy of the femoral-popliteal graft with removal of a number of stents. Postoperatively the patient did well. Incision healed nicely. The patient was discharged in stable condition with instructions to follow up in my office. Noé MCGREGOR/TLL /4:48 PM /8:46 AM
== END 2017-03-17 14:19 | disposition home or self-care (01) | DRG 271 ==
LOC: NEPE 09:26 → NEDA 13:30 → N03B 18:50 → N07B 03-13 14:05 → N07A 03-13 16:37 → N03B 03-14 02:27 → N03A 03-14 06:00 → N06A 03-15 11:30
PROVIDERS: ADMIT Surgery; ATTEND Surgery
PROC: 3E05317 Introduction of Other Thrombolytic into Peripheral Artery, Percutaneous Approach (ICD-10-PCS; 2017-03-12)
PROC: 04WY07Z Revision of Autologous Tissue Substitute in Lower Artery, Open Approach (ICD-10-PCS; 2017-03-13)
PROC: 04CC0ZZ Extirpation of Matter from Right Common Iliac Artery, Open Approach (ICD-10-PCS; 2017-03-13)
PROC: 04CM0ZZ Extirpation of Matter from Right Popliteal Artery, Open Approach (ICD-10-PCS; 2017-03-13)
PROC: 04CH3ZZ Extirpation of Matter from Right External Iliac Artery, Percutaneous Approach (ICD-10-PCS; 2017-03-13)
PROC: 04CK3ZZ Extirpation of Matter from Right Femoral Artery, Percutaneous Approach (ICD-10-PCS; 2017-03-13)
PROC: 04B Lower Arteries, Excision (ICD-10-PCS; 2017-03-14)
PROC: 04CL0ZZ Extirpation of Matter from Left Femoral Artery, Open Approach (ICD-10-PCS; 2017-03-14)
PROC: 04CN0ZZ Extirpation of Matter from Left Popliteal Artery, Open Approach (ICD-10-PCS; 2017-03-14)
PROC: 04PY0DZ Removal of Intraluminal Device from Lower Artery, Open Approach (ICD-10-PCS; 2017-03-14)
PROC: 041D0JJ Bypass Left Common Iliac Artery to Left Femoral Artery with Synthetic Substitute, Open Approach (ICD-10-PCS; principal; 2017-03-14 01:37)
DX: T82.868A Thrombosis due to vascular prosthetic devices, implants and grafts, initial encounter (principal); E87.1 Hypo-osmolality and hyponatremia; I74.5 Embolism and thrombosis of iliac artery; I10 Essential (primary) hypertension; I25.10 Atherosclerotic heart disease of native coronary artery without angina pectoris; E78.5 Hyperlipidemia, unspecified; I25.2 Old myocardial infarction; I73.9 Peripheral vascular disease, unspecified; F10.10 Alcohol abuse, uncomplicated; F17.210 Nicotine dependence, cigarettes, uncomplicated; Z82.49 Family history of ischemic heart disease and other diseases of the circulatory system; Z91.19 Patient's noncompliance with other medical treatment and regimen; Z95.5 Presence of coronary angioplasty implant and graft
CPT/HCPCS: 36247; 36430; 37184; 37211; 37214; 75635; 75710; 76937; 80048; 80053; 80061; 80076; 82805; 84155; 85018; 85025; 85027; 85384; 85610; 85730; 86850; 86900; 86901; 86920; 87640; 87641; 88304; 88305; 88311; 93005; 94150; 96365; 96375; 99152; 99153; C1757; C1760; C1768; C1769; C1887; C1894; C9113; G0269; J0131; J0690; J1100; J1170; J1644; J2250; J2270; J2370; J2405; J2710; J2720; J2997; J3010; J7030; J7040; J7120; P9016; Q9967

== ENCOUNTER 2017-04-19 16:11 | Emergency (ER) | payer SELFPAY ==
[~2017-04-19] VITALS: Ht 175.3 cm; Wt 66.0 kg
[~2017-04-19 16:11] MED LIST changes: -ASPI81TA81; +CILO100T PO; -CRUTMIS25; -CRUTMIS3; -OXYC1TAB63 PO; +PERC7.5T13 PO
[2017-04-19 16:14] VITALS: BP 144/87; PULSE 114; RESP 24; TEMP 98.3; O2SAT 98
--- NOTE | 2017-04-19 16:31 | PD ---
Physical Exam Date Seen by Provider: Apr 19, 2017 Time Seen by Provider: 16:27 Data Data Last Documented VS Vital Signs Date Time Temp Pulse Resp B/P Pulse Ox O2 Delivery O2 Flow Rate FiO2 04/19/17 16:14 98.3 114 24 144/87 98 Room Air [facility] Supervised Visit with TAY: No Narrative Course 57 YO M with complaint of throbbing right leg pain, erythema, and weakness. History of femoral popliteal bypass in the same leg. Followed by Dr. Perea. Vitals reviewed. Awaiting bed placement. Selena Harvey Apr 19, 2017 16:31
[2017-04-19 16:41] VITALS: BP 157/96; PULSE 96; RESP 16; O2SAT 99
[2017-04-19 17:25] LABS: AUTOMATED NEUTROPHIL # 4.2 TH/MM3 (1.8-7.7); BASOPHIL # 0.1 TH/MM3 (0-0.2); EOSINOPHIL # 0.1 TH/MM3 (0-0.4); HEMATOCRIT 41.2 % (39.0-51.0); HEMO FLAGS DIFF FINAL; LYMPHOCYTE # 0.9 TH/MM3 (1.0-4.8); MEAN CELL VOLUME 91.5 FL (80.0-100.0); MEAN CORPUSCULAR HEMOGLOBIN 30.9 PG (27.0-34.0); MEAN CORPUSCULAR HGB CONC 33.8 % (32.0-36.0); MONO % 8.2 % (0.0-8.0); NEUT % 73.8 % (16.0-70.0); PLATELET COUNT 143 TH/MM3 (150-450); RED CELL DISTRIBUTION WIDTH 15.2 % (11.6-17.2); WHITE BLOOD COUNT 5.7 TH/MM3 (4.0-11.0)
[2017-04-19] MEDS ORDERED: oxyCODONE/ACETAMINOPHEN 5 MG/325 MG TAB PO ONE (17:45)
[2017-04-19 17:49] LABS: ANION GAP 6 MEQ/L (5-15); BICARBONATE 28.3 MEQ/L (21.0-32.0); BLOOD UREA NITROGEN 11 MG/DL (7-18); CHLORIDE 105 MEQ/L (98-107); GLOMERULAR FILTRATION RATE 121 ML/MIN (>89); POTASSIUM 3.9 MEQ/L (3.5-5.1); SODIUM (NA) 139 MEQ/L (136-145)
[2017-04-19 18:01] LABS: ALKALINE PHOSPHATASE 55 U/L (45-117); ALT (GPT) 21 U/L (12-78); AST (GOT) 19 U/L (15-37); TOTAL BILIRUBIN ADULT 0.3 MG/DL (0.2-1.0)
[2017-04-19] MEDS ORDERED: HYDR-3533 PO (18:03)
[2017-04-19] MEDS ORDERED: CEPH-460 PO (18:03)
[2017-04-19] MEDS ORDERED: BACT800T5 PO (18:03)
--- NOTE | 2017-04-19 18:03 | PD ---
HPI Chief Complaint: Pain: Acute or Chronic Time Seen by Provider: 16:37 Travel History International Travel<30 days: No Contact w/Intl Traveler<30days: No Traveled to known affect area: No History of Present Illness HPI This is a 57-year-old male who has a history of peripheral arterial disease who had a thromboembolectomy of the right iliofemoral and right femoral popliteal graft along with revision in March by who presents to the emergency department with increasing pain, redness and some swelling of his foot and lower leg, constant, moderate severity, associated with some warmth. Patient denies any fevers or chills. PFSH Past Medical History Anxiety: No Depression: No Heart Rhythm Problems: Yes Cancer: No Cardiac Catheterization: Yes (2013) Cardiovascular Problems: Yes High Cholesterol: Yes Chemotherapy: No Chest Pain: Yes (in past) Diminished Hearing: No Endocrine: No Gastrointestinal Disorders: Yes (PAST HX OF INDIGESTION) GERD: Yes Genitourinary: No Hepatitis: No Hiatal Hernia: No Hypertension: Yes Immune Disorder: No Implanted Vascular Access Dvce: No Medical other: Yes (PVD) Musculoskeletal: No Neurologic: No Psychiatric: No Reproductive: No Respiratory: No Myocardial Infarction: Yes (X2) Radiation Therapy: No Influenza Vaccination: Yes Past Surgical History Abdominal Surgery: No AICD: No Body Medical Devices: CARDIAC STENT Cardiac Surgery: Yes (fem/pop bypass ) Coronary Artery Bypass Graft: No Coronary Stent: Yes (X1 2013) Ear Surgery: No Endocrine Surgery: No Eye Surgery: No Genitourinary Surgery: No Gynecologic Surgery: No Joint Replacement: No Oral Surgery: No Pacemaker: No Thoracic Surgery: No Other Surgery: Yes (YULIA.FEMORAL BYPASS 2007) Social History Alcohol Use: Yes (OCCASIONALLY) Tobacco Use: No Substance Use: No Allergies-Medications (Allergen,Severity, Reaction): Coded Allergies: No Known Allergies (Unverified , 04/19/17) Reported Meds & Prescriptions Reported Meds & Active Scripts Active Hydrochlorothiazide 25 Mg Tab 25 Mg PO DAILY Plavix (Clopidogrel Bisulfate) 75 Mg Tab 75 Mg PO DAILY Cilostazol 100 Mg Tab 100 Mg PO BIDAC Prinivil (Lisinopril) 20 Mg Tab 20 Mg PO Q12HR Lipitor (Atorvastatin Calcium) 10 Mg Tab 10 Mg PO DAILY Amlodipine (Amlodipine Besylate) 10 Mg Tab 10 Mg PO DAILY Reported Gabapentin 800 Mg Tab 800 Mg PO TID Coreg (Carvedilol) 6.25 Mg Tab 6.25 Mg PO Q12HR Review of Systems Except as stated in HPI: all other systems reviewed are Neg Physical Exam Narrative GENERAL:Well appearing, no acute distress SKIN: Erythema and warmth of the foot and distal right lower extremity with no swelling, calf tenderness or increased size of the calf. HEAD: Atraumatic. Normocephalic. EYES: Pupils equal and round. No injection or drainage. ENT: Moist mucous membranes NECK: Trachea midline. CARDIOVASCULAR: Regular rate and rhythm. No murmur appreciated. Right DP is strong and dopplerable. Right lower extremity is well perfused. RESPIRATORY: Clear to auscultation. Breath sounds equal bilaterally. GASTROINTESTINAL: Abdomen soft, non-tender, nondistended. MUSCULOSKELETAL: No obvious deformities. NEUROLOGICAL: Awake and alert. No obvious cranial nerve deficits. Moving all extremities. PSYCHIATRIC: Appropriate mood and affect; insight and judgment normal. Data Data Last Documented VS Vital Signs Date Time Temp Pulse Resp B/P Pulse Ox O2 Delivery O2 Flow Rate FiO2 04/19/17 16:41 96 16 157/96 99 Room Air 04/19/17 16:14 98.3 Orders Complete Blood Count With Diff (04/19/17 16:47) Comprehensive Metabolic Panel (04/19/17 16:47) Oxycodone-Acetamin 5-325 Mg (Percocet (04/19/17 17:45) Labs Laboratory Tests Test 04/19/17 17:00 White Blood Count 5.7 TH/MM3 Red Blood Count 4.50 MIL/MM3 Hemoglobin 13.9 GM/DL Hematocrit 41.2 % Mean Corpuscular Volume 91.5 FL Mean Corpuscular Hemoglobin 30.9 PG Mean Corpuscular Hemoglobin 33.8 % Concent Red Cell Distribution Width 15.2 % Platelet Count 143 TH/MM3 Mean Platelet Volume 8.9 FL Neutrophils (%) (Auto) 73.8 % Lymphocytes (%) (Auto) 16.0 % Monocytes (%) (Auto) 8.2 % Eosinophils (%) (Auto) 1.0 % Basophils (%) (Auto) 1.0 % Neutrophils # (Auto) 4.2 TH/MM3 Lymphocytes # (Auto) 0.9 TH/MM3 Monocytes # (Auto) 0.5 TH/MM3 Eosinophils # (Auto) 0.1 TH/MM3 Basophils # (Auto) 0.1 TH/MM3 CBC Comment DIFF FINAL Differential Comment Sodium Level 139 MEQ/L Potassium Level 3.9 MEQ/L Chloride Level 105 MEQ/L Carbon Dioxide Level 28.3 MEQ/L Anion Gap 6 MEQ/L Blood Urea Nitrogen 11 MG/DL Creatinine 0.68 MG/DL Estimat Glomerular Filtration 121 ML/MIN Rate Random Glucose 103 MG/DL Calcium Level 9.5 MG/DL Albumin 3.8 GM/DL MDM Medical Decision Making Medical Screen Exam Complete: Yes Emergency Medical Condition: Yes Differential Diagnosis Cellulitis, wound infection, arterial occlusion, DVT Narrative Course This is a 57-year-old male who has a history of peripheral arterial disease who presents to the emergency department with increasing redness and warmth of the right lower extremity. He has good perfusion in the foot with a dopplerable pulse and normal capillary refill. The foot is warm. He has no systemic symptoms and is not febrile here in the emergency department. Labs are reassuring with no leukocytosis. I suspect the patient has a cellulitis. I don 't suspect the patient has a DVT as his redness mostly confined to the foot and immediately above the ankle. I discussed the case with Dr. Garsia. Patient will be discharged on oral antibiotic therapy. Diagnosis Primary Impression: Cellulitis Qualified Code: L03.115 - Cellulitis of right lower extremity Patient Instructions: General Instructions Additional Instructions: If you develop fever, increasing redness, warmth, or spreading of your infection , or severe pain return to the emergency department immediately as you may require antibiotics through your IV. Complete your course of antibiotics as prescribed. Med/Other Pt SpecificInfo: Prescription(s) given Scripts Hydrocodone-Acetaminophen (Lortab)5-325 Mg Tab1-2 Tab PO Q6H PRN (PAIN) #15 TAB Ref 0 Prov:Radha Chapa MD 04/19/17 Sulfamethoxazole-Trimethoprim (Bactrim DS)800-160 Mg Tab1 Tab PO BID #14 TAB Ref 0 Prov:Radha Chapa MD 04/19/17 Cephalexin (Keflex)500 Mg [id number] Mg PO Q12H 7 Days Ref 0 Prov:Radha Chapa MD 04/19/17 Disposition: 01 DISCHARGE HOME Condition: Stable Radha Chapa MD Apr 19, 2017 18:03
== END 2017-04-19 18:58 | disposition home or self-care (01) ==
LOC: NEPC 16:11
DX: L03.115 Cellulitis of right lower limb (principal); I10 Essential (primary) hypertension; I73.9 Peripheral vascular disease, unspecified; I25.2 Old myocardial infarction; Z79.02 Long term (current) use of antithrombotics/antiplatelets; Z79.899 Other long term (current) drug therapy
CPT/HCPCS: 80053; 85025; 99284

== ENCOUNTER 2017-04-28 11:25 | Emergency (ER) | payer SELFPAY ==
[~2017-04-28 11:25] MED LIST changes: +BACT800T5 PO; +CEPH-460 PO; +HYDR-3533 PO; -OXYC1TAB35 PO; -PERC7.5T13 PO
[2017-04-28 11:26] VITALS: BP 177/95; PULSE 90; RESP 20; TEMP 97.8; O2SAT 98
--- NOTE | 2017-04-28 11:40 | PD ---
Physical Exam Date Seen by Provider: Apr 28, 2017 Time Seen by Provider: 11:40 Data Data Last Documented VS Vital Signs Date Time Temp Pulse Resp B/P Pulse Ox O2 Delivery O2 Flow Rate FiO2 04/28/17 11:26 97.8 90 20 177/95 98 Room Air [facility] Supervised Visit with TAY: No Narrative Course 57 YO M with complaint of right leg pain. States dx'd with cellulitis earlier this month. Endorses compliance with antibiotics. Vitals reviewed. Seen in triage, awaiting bed placement. Selena Harvey Apr 28, 2017 11:40
[2017-04-28] MEDS ORDERED: SODIUM CHLORIDE 0.9% FLUSH 10 ML FLUSH IVF PRN (12:00)
[2017-04-28] MEDS ORDERED: CLINDAMYCIN INJ 900 MG in SODIUM CHLORIDE 0.9% INJ 100 ML IV ONE (12:00)
[2017-04-28] MEDS ORDERED: KETOROLAC TROMETHAMINE 30 MG/ML (IVP) VIAL IVP ONE (12:00)
--- NOTE | 2017-04-28 12:37 | PD ---
HPI . Right lower extremity pain Chief Complaint: Injury Time Seen by Provider: 11:47 Travel History International Travel<30 days: No Contact w/Intl Traveler<30days: No Traveled to known affect area: No History of Present Illness HPI Patient presents with right lower extremity pain. This patient has recently been treated for cellulitis of his right leg with Septra and Keflex. He finished his antibiotics 2 days ago. He states that he has not gotten any better with treatment. He reports the onset of symptoms around 11 April. Pain is constant and throbbing and rated at 10/10. PFSH Past Medical History Anxiety: No Depression: No Heart Rhythm Problems: Yes Cancer: No Cardiac Catheterization: Yes (2013) Cardiovascular Problems: Yes High Cholesterol: Yes Chemotherapy: No Chest Pain: Yes (in past) Diminished Hearing: No Endocrine: No Gastrointestinal Disorders: Yes (PAST HX OF INDIGESTION) GERD: Yes Genitourinary: No Hepatitis: No Hiatal Hernia: No Hypertension: Yes Immune Disorder: No Implanted Vascular Access Dvce: No Musculoskeletal: No Neurologic: No Psychiatric: No Reproductive: No Respiratory: No Myocardial Infarction: Yes (X2) Radiation Therapy: No Past Surgical History Abdominal Surgery: No AICD: No Body Medical Devices: CARDIAC STENT Cardiac Surgery: Yes (fem/pop bypass 2007/2015) Coronary Artery Bypass Graft: No Coronary Stent: Yes (X1 2013) Ear Surgery: No Endocrine Surgery: No Eye Surgery: No Genitourinary Surgery: No Gynecologic Surgery: No Joint Replacement: No Oral Surgery: No Pacemaker: No Thoracic Surgery: No Other Surgery: Yes (YULIA.FEMORAL BYPASS 2007) Social History Alcohol Use: No Tobacco Use: No Substance Use: No Allergies-Medications (Allergen,Severity, Reaction): Coded Allergies: No Known Allergies (Unverified , 04/28/17) Reported Meds & Prescriptions Reported Meds & Active Scripts Active Tramadol (Tramadol HCl) 50 Mg Tab 50 Mg PO Q4H PRN Doxycycline Hyclate 100 Mg Cap 100 Mg PO BID Hydrochlorothiazide 25 Mg Tab 25 Mg PO DAILY Plavix (Clopidogrel Bisulfate) 75 Mg Tab 75 Mg PO DAILY Cilostazol 100 Mg Tab 100 Mg PO BIDAC Prinivil (Lisinopril) 20 Mg Tab 20 Mg PO Q12HR Lipitor (Atorvastatin Calcium) 10 Mg Tab 10 Mg PO DAILY Amlodipine (Amlodipine Besylate) 10 Mg Tab 10 Mg PO DAILY Reported Gabapentin 800 Mg Tab 800 Mg PO TID Coreg (Carvedilol) 6.25 Mg Tab 6.25 Mg PO Q12HR Review of Systems Except as stated in HPI: all other systems reviewed are Neg General / Constitutional: Positive: Fever, Chills Musculoskeletal: Positive: Edema Skin: Positive Change in Pigmentation Physical Exam Narrative GENERAL: Awake and alert and in no acute distress. SKIN: Warm and dry. Erythema of the lower half of the right lower leg. The erythema extends into the foot. HEAD: Atraumatic. Normocephalic. EYES: Pupils equal and round. NECK: Trachea midline. CARDIOVASCULAR: Regular rate and rhythm. Pedal pulses in the right foot cannot be palpated. They are audible with Doppler. RESPIRATORY: No accessory muscle use. MUSCULOSKELETAL: No obvious deformities. There is mild edema of the right lower extremity. NEUROLOGICAL: Awake and alert. No obvious cranial nerve deficits. Motor grossly within normal limits. Normal speech. PSYCHIATRIC: Appropriate mood and affect; insight and judgment normal. Data Data Last Documented VS Vital Signs Date Time Temp Pulse Resp B/P Pulse Ox O2 Delivery O2 Flow Rate FiO2 04/28/17 13:00 16 04/28/17 11:26 97.8 90 177/95 98 Room Air Orders Basic Metabolic Panel (Bmp) (04/28/17 11:53) Complete Blood Count With Diff (04/28/17 11:53) Blood Culture (04/28/17 11:53) Iv Access Insert/Monitor (04/28/17 11:53) Ketorolac Inj (Toradol Inj) (04/28/17 12:00) Sodium Chloride 0.9% Flush (Ns Flush) (04/28/17 12:00) Clindamycin Inj (Cleocin Inj) (04/28/17 12:00) C-Reactive Protein (Crp) (04/28/17 11:54) Westergren Sedimentation Rate (04/28/17 11:54) Labs Laboratory Tests Test 04/28/17 12:06 White Blood Count 5.1 TH/MM3 Red Blood Count 4.60 MIL/MM3 Hemoglobin 14.2 GM/DL Hematocrit 42.2 % Mean Corpuscular Volume 91.7 FL Mean Corpuscular Hemoglobin 30.9 PG Mean Corpuscular Hemoglobin 33.7 % Concent Red Cell Distribution Width 15.1 % Platelet Count 192 TH/MM3 Mean Platelet Volume 9.0 FL Neutrophils (%) (Auto) 58.9 % Lymphocytes (%) (Auto) 28.0 % Monocytes (%) (Auto) 10.7 % Eosinophils (%) (Auto) 1.5 % Basophils (%) (Auto) 0.9 % Neutrophils # (Auto) 3.0 TH/MM3 Lymphocytes # (Auto) 1.4 TH/MM3 Monocytes # (Auto) 0.5 TH/MM3 Eosinophils # (Auto) 0.1 TH/MM3 Basophils # (Auto) 0.0 TH/MM3 CBC Comment DIFF FINAL Differential Comment Erythrocyte Sedimentation Rate 5 mm/hr Sodium Level 135 MEQ/L Potassium Level 4.2 MEQ/L Chloride Level 102 MEQ/L Carbon Dioxide Level 25.4 MEQ/L Anion Gap 8 MEQ/L Blood Urea Nitrogen 12 MG/DL Creatinine 0.65 MG/DL Estimat Glomerular Filtration 128 ML/MIN Rate Random Glucose 105 MG/DL Calcium Level 9.2 MG/DL C-Reactive Protein LESS THAN 0.29 MG/DL MDM Medical Decision Making Medical Screen Exam Complete: Yes Emergency Medical Condition: Yes Medical Record Reviewed: Yes (records reviewed. The patient was here on 04/19 and was treated with Septra and Keflex. His white blood count that time was 5.7. The patient had a recent thromboembolectomy of the right lower extremity. He has had a previous right femoropopliteal bypass.) Differential Diagnosis My differential diagnosis includes but is not limited to localized wound infection, cellulitis, abscess Narrative Course Patient presents complaining with continued cellulitis of the right lower extremity despite recent treatment with Bactrim and Keflex. He'll be treated here today with IV clindamycin, 900 mg. CBC & BMP Diagram 04/28/17 12:06 ESR 5, CRP < 0.29 The history, exam, diagnostic testing, and current condition do not suggest any significant pathology to warrant further testing, continued ED treatment, admission, or surgical evaluation at this point. The patient's condition is stable and appropriate for discharge. Diagnosis Primary Impression: Cellulitis Qualified Code: L03.115 - Cellulitis of right lower extremity Additional Impression: Peripheral vascular disease Referrals: Grace Harley MD Patient Instructions: Cellulitis (DC), General Instructions Med/Other Pt SpecificInfo: Prescription(s) given Scripts Tramadol 50 Mg Tab50 Mg PO Q4H PRN (PAIN) #12 TAB Ref 0 Prov:Joanna Jim MD 04/28/17 Doxycycline Hyclate 100 Mg [id number] Mg PO BID #20 CAP Ref 0 Prov:Joanna Jim MD 04/28/17 Disposition: 01 DISCHARGE HOME Condition: Stable Joanna Jim MD Apr 28, 2017 12:37
[2017-04-28 12:44] LABS: BASOPHIL % 0.9 % (0.0-2.0); EOSINOPHIL # 0.1 TH/MM3 (0-0.4); EOSINOPHIL % 1.5 % (0.0-4.0); HEMATOCRIT 42.2 % (39.0-51.0); HEMO FLAGS DIFF FINAL; LYMPHOCYTE # 1.4 TH/MM3 (1.0-4.8); MEAN CELL VOLUME 91.7 FL (80.0-100.0); MEAN CORPUSCULAR HEMOGLOBIN 30.9 PG (27.0-34.0); MEAN CORPUSCULAR HGB CONC 33.7 % (32.0-36.0); MONO % 10.7 % (0.0-8.0); NEUT % 58.9 % (16.0-70.0); PLATELET COUNT 192 TH/MM3 (150-450); RED CELL DISTRIBUTION WIDTH 15.1 % (11.6-17.2); WHITE BLOOD COUNT 5.1 TH/MM3 (4.0-11.0)
[2017-04-28] MEDS ORDERED: TRAM50TA PO (12:48)
[2017-04-28] MEDS ORDERED: DOXY100C PO (12:48)
[2017-04-28 13:00] VITALS: RESP 16
[2017-04-28 13:13] LABS: BICARBONATE 25.4 MEQ/L (21.0-32.0); POTASSIUM 4.2 MEQ/L (3.5-5.1)
== END 2017-04-28 13:43 | disposition home or self-care (01) ==
LOC: NEPD 11:25
DX: L03.115 Cellulitis of right lower limb (principal); I73.9 Peripheral vascular disease, unspecified; E78.00 Pure hypercholesterolemia, unspecified; K21.9 Gastro-esophageal reflux disease without esophagitis; I10 Essential (primary) hypertension; I25.2 Old myocardial infarction; Z79.02 Long term (current) use of antithrombotics/antiplatelets; Z79.899 Other long term (current) drug therapy
CPT/HCPCS: 80048; 85025; 85652; 86140; 87040; 96365; 96375; 99284; J1885

== ENCOUNTER 2017-05-12 11:05 | Emergency (ER) | payer SELFPAY ==
[~2017-05-12] VITALS: Ht 172.7 cm; Wt 66.0 kg
[~2017-05-12 11:05] MED LIST changes: -BACT800T5 PO; -CEPH-460 PO; +DOXY100C PO; -HYDR-3533 PO; +TRAM50TA PO
[2017-05-12 11:07] VITALS: BP 196/96; PULSE 106; RESP 20; TEMP 98; O2SAT 98
--- NOTE | 2017-05-12 11:19 | PD ---
HPI Chief Complaint: Injury Time Seen by Provider: 11:19 Travel History International Travel<30 days: No Contact w/Intl Traveler<30days: No Traveled to known affect area: No History of Present Illness HPI 57-year-old male with history of peripheral vascular disease. Presents with ongoing and worsening right-sided lower extremity and foot pain. Patient feels the area is somewhat swollen. He also states some mild erythema noted. Patient denies fever, chills, or other symptoms. Patient has been seen by Dr. Morales and had a revision of a femoropopliteal bypass on the right. She states she's having difficulty ambulating saner the pain in the right leg and foot. He states when he ambulates his pain in his foot feels like "stepping on needles". Patient is scheduled to see Dr. Morales next month. Patient has no known drug allergies. PFSH Past Medical History Hx Anticoagulant Therapy: Yes Anxiety: No Depression: No Heart Rhythm Problems: Yes Cancer: No Cardiac Catheterization: Yes (2013) Cardiovascular Problems: Yes High Cholesterol: Yes Chemotherapy: No Chest Pain: Yes (in past) Diminished Hearing: No Endocrine: No Gastrointestinal Disorders: Yes (PAST HX OF INDIGESTION) GERD: Yes Genitourinary: No Hepatitis: No Hiatal Hernia: No Hypertension: Yes Immune Disorder: No Implanted Vascular Access Dvce: No Musculoskeletal: No Neurologic: No Psychiatric: No Reproductive: No Respiratory: No Myocardial Infarction: Yes (X2) Radiation Therapy: No Past Surgical History Abdominal Surgery: No AICD: No Body Medical Devices: CARDIAC STENT Cardiac Surgery: Yes (fem/pop bypass ) Coronary Artery Bypass Graft: No Coronary Stent: Yes (X1 2012) Ear Surgery: No Endocrine Surgery: No Eye Surgery: No Genitourinary Surgery: No Gynecologic Surgery: No Joint Replacement: No Oral Surgery: No Pacemaker: No Thoracic Surgery: No Other Surgery: Yes ([facility].FEMORAL BYPASS 2007) Social History Alcohol Use: No Tobacco Use: No Substance Use: No Allergies-Medications (Allergen,Severity, Reaction): Coded Allergies: No Known Allergies (Unverified , 05/12/17) Reported Meds & Prescriptions Reported Meds & Active Scripts Active Tramadol (Tramadol HCl) 50 Mg Tab 50 Mg PO Q6H PRN Xarelto Starter Pack 15 & 20 mg (Rivaroxaban) 1 Tab Tab 1 Tab PO DIRECTED 30 Days Hydrochlorothiazide 25 Mg Tab 25 Mg PO DAILY Plavix (Clopidogrel Bisulfate) 75 Mg Tab 75 Mg PO DAILY Cilostazol 100 Mg Tab 100 Mg PO BIDAC Prinivil (Lisinopril) 20 Mg Tab 20 Mg PO Q12HR Lipitor (Atorvastatin Calcium) 10 Mg Tab 10 Mg PO DAILY Amlodipine (Amlodipine Besylate) 10 Mg Tab 10 Mg PO DAILY Reported Coreg (Carvedilol) 6.25 Mg Tab 6.25 Mg PO Q12HR Review of Systems Except as stated in HPI: all other systems reviewed are Neg General / Constitutional: No: Fever Eyes: No: Visual changes HENT: No: Headaches Cardiovascular: No: Chest Pain or Discomfort Respiratory: No: Shortness of Breath Gastrointestinal: No: Abdominal Pain Genitourinary: No: Dysuria Musculoskeletal: Positive: Myalgias, Limited ROM (see history present illness.) , Pain Skin: No Rash Neurologic: No: Weakness Psychiatric: No: Depression Endocrine: No: Polydipsia Hematologic/Lymphatic: No: Easy Bruising Physical Exam Narrative GENERAL: Patient appears no acute distress. SKIN: Warm and dry. Normal color. Normal turgor. No obvious skin breakdown. The right lower extremity and foot is appropriately warm to touch. HEAD: Atraumatic. Normocephalic. EYES: Pupils equal and round. No scleral icterus. No injection or drainage. ENT: No nasal bleeding or discharge. Mucous membranes pink and moist. Pharynx is clear. Airway is patent. NECK: Trachea midline. Supple nontender. CARDIOVASCULAR: Regular rate and rhythm. RESPIRATORY: No accessory muscle use. Clear to auscultation. Breath sounds equal bilaterally. MUSCULOSKELETAL: Extremities without clubbing, cyanosis, or edema. No obvious deformities. No palpable pulses in the right. No significant increased tenderness with palpation is noted. No significant swelling or edema. Coloration appears normal in both lower extremities. NEUROLOGICAL: Awake and alert. No obvious cranial nerve deficits. Motor grossly within normal limits. Five out of 5 muscle strength in the arms and legs. Normal speech. PSYCHIATRIC: Appropriate mood and affect; insight and judgment normal. Data Data Last Documented VS Vital Signs Date Time Temp Pulse Resp B/P Pulse Ox O2 Delivery O2 Flow Rate FiO2 05/12/17 12:29 79 15 97 Room Air 05/12/17 12:28 168/82 05/12/17 11:07 98.0 Orders Complete Blood Count With Diff (05/12/17 11:28) Comprehensive Metabolic Panel (05/12/17 11:28) Lactic Acid (05/12/17 11:28) Prothrombin Time / Inr (Pt) (05/12/17 11:28) Act Partial Throm Time (Ptt) (05/12/17 11:28) Iv Access Insert/Monitor (05/12/17 11:28) Ecg Monitoring (05/12/17 11:28) Oximetry (05/12/17 11:28) Morphine Inj (Morphine Inj) (05/12/17 11:30) Sodium Chloride 0.9% Flush (Ns Flush) (05/12/17 11:30) Ketorolac Inj (Toradol Inj) (05/12/17 11:30) Us Leg Venous Doppler (05/12/17 11:28) Labs Laboratory Tests Test 05/12/17 12:00 White Blood Count 6.4 TH/MM3 Red Blood Count 4.65 MIL/MM3 Hemoglobin 14.0 GM/DL Hematocrit 43.4 % Mean Corpuscular Volume 93.3 FL Mean Corpuscular Hemoglobin 30.1 PG Mean Corpuscular Hemoglobin 32.3 % Concent Red Cell Distribution Width 15.0 % Platelet Count 139 TH/MM3 Mean Platelet Volume 9.3 FL Neutrophils (%) (Auto) 72.2 % Lymphocytes (%) (Auto) 17.9 % Monocytes (%) (Auto) 8.0 % Eosinophils (%) (Auto) 1.3 % Basophils (%) (Auto) 0.6 % Neutrophils # (Auto) 4.6 TH/MM3 Lymphocytes # (Auto) 1.1 TH/MM3 Monocytes # (Auto) 0.5 TH/MM3 Eosinophils # (Auto) 0.1 TH/MM3 Basophils # (Auto) 0.0 TH/MM3 CBC Comment DIFF FINAL Differential Comment Prothrombin Time 10.4 SEC Prothromb Time International 0.9 RATIO Ratio Activated Partial 24.6 SEC Thromboplast Time Sodium Level 140 MEQ/L Potassium Level 4.5 MEQ/L Chloride Level 106 MEQ/L Carbon Dioxide Level 27.5 MEQ/L Anion Gap 7 MEQ/L Blood Urea Nitrogen 13 MG/DL Creatinine 0.75 MG/DL Estimat Glomerular Filtration 108 ML/MIN Rate Random Glucose 99 MG/DL Lactic Acid Level 0.9 mmol/L Calcium Level 9.4 MG/DL Total Bilirubin 0.4 MG/DL Aspartate Amino Transf 15 U/L (AST/SGOT) Alanine Aminotransferase 20 U/L (ALT/SGPT) Alkaline Phosphatase 50 U/L Total Protein 7.5 GM/DL Albumin 4.0 GM/DL [facility] Medical Decision Making Medical Screen Exam Complete: Yes Emergency Medical Condition: Yes Medical Record Reviewed: Yes Differential Diagnosis Peripheral vascular disease. Chronic right lower extremity pain. Possible cellulitis. DVT. Narrative Course Patient is medically stable at time of exam. Call was placed to Dr. Morales and the patient was discussed. Labs are ordered including CBC, CMP, lactic acid, PTT and INR. Ultrasound right lower extremities were ordered. IV access is obtained patient is given 2 mg morphine IV as well as 30 mg Toradol IV. CBC is unremarkable. Lactic acid is normal at 0.9. CMP is unremarkable. Coagulation studies are normal. Ultrasound of the right lower extremity shows nonocclusive DVT right superficial femoral vein. Call was placed to Dr. Morales who came and assessed the patient. Dr. Morales recommends warm compresses to the area as well as starting him on Xaralto starter pack. Patient is given tramadol 50 mg one every 6 hours when necessary. #20. Patient given 30 day coupon for Xarolto. Patient is followed by Dr. Morales as discussed. Diagnosis Primary Impression: DVT (deep venous thrombosis) Qualified Code: I82.411 - Deep vein thrombosis (DVT) of femoral vein of right lower extremity, unspecified chronicity Referrals: Vascular Surgeon call for appointment Patient Instructions: Deep Venous Thrombosis (ED), General Instructions Additional Instructions: Ultrasound right lower extremities were ordered. IV access is obtained patient is given 2 mg morphine IV as well as 30 mg Toradol IV. CBC is unremarkable. Lactic acid is normal at 0.9. CMP is unremarkable. Coagulation studies are normal. Ultrasound of the right lower extremity shows nonocclusive DVT right superficial femoral vein. Call was placed to Dr. Morales who came and assessed the patient. Dr. Morales recommends warm compresses to the area as well as starting him on Xaralto starter pack. Patient is given tramadol 50 mg one every 6 hours when necessary. #20. Patient given 30 day coupon for Xarolto. Patient is followed by Dr. Morales as discussed. Med/Other Pt SpecificInfo: Prescription(s) given Scripts Tramadol 50 Mg Tab50 Mg PO Q6H PRN (PAIN) #20 TAB Prov:Khushbu Pendleton MD 05/12/17 Rivaroxaban Starter Pack 15 & 20 mg (Xarelto Starter Pack 15 & 20 mg)1 Tab Tab1 Tab PO DIRECTED 30 Days Ref 0 Prov:Khushbu Pendleton MD 05/12/17 Disposition: 01 DISCHARGE HOME Condition: Stable Juliano Aguillon May 12, 2017 11:19
[2017-05-12] MEDS ORDERED: KETOROLAC TROMETHAMINE 30 MG/ML (IVP) VIAL IVP ONE (11:30)
[2017-05-12] MEDS ORDERED: MORPHINE SULFATE 4 MG/ML INJ IV PUSH ONE (11:30)
[2017-05-12] MEDS ORDERED: SODIUM CHLORIDE 0.9% FLUSH 10 ML FLUSH IV FLUSH PRN (11:30)
[2017-05-12 12:28] VITALS: BP 168/82; PULSE 79; RESP 15; O2SAT 97
[2017-05-12 12:29] VITALS: PULSE 79; RESP 15; O2SAT 97
[2017-05-12 12:40] LABS: AUTOMATED NEUTROPHIL # 4.6 TH/MM3 (1.8-7.7); BASOPHIL % 0.6 % (0.0-2.0); EOSINOPHIL # 0.1 TH/MM3 (0-0.4); EOSINOPHIL % 1.3 % (0.0-4.0); HEMATOCRIT 43.4 % (39.0-51.0); HEMO FLAGS DIFF FINAL; LYMPH % 17.9 % (9.0-44.0); LYMPHOCYTE # 1.1 TH/MM3 (1.0-4.8); MEAN CELL VOLUME 93.3 FL (80.0-100.0); MEAN CORPUSCULAR HEMOGLOBIN 30.1 PG (27.0-34.0); MEAN CORPUSCULAR HGB CONC 32.3 % (32.0-36.0); NEUT % 72.2 % (16.0-70.0); PLATELET COUNT 139 TH/MM3 (150-450); RED BLOOD COUNT 4.65 MIL/MM3 (4.50-5.90); WHITE BLOOD COUNT 6.4 TH/MM3 (4.0-11.0)
[2017-05-12 12:50] LABS: APTT (PATIENT) 24.6 SEC (24.3-30.1); INTERNATIONAL NORMALIZED RATIO 0.9 RATIO; PROTHROMBIN TIME - PATIENT 10.4 SEC (9.8-11.6)
--- NOTE | 2017-05-12 12:58 | RADRPT ---
EXAM DATE/TIME: 05/12/2017 12:19 [place] COMPARISON: No previous studies available for comparison. INDICATIONS : Right leg pain. MEDICAL HISTORY : Myocardial infarction. Peripheral vascular disease. Hypercholesterolemia. CAD. Hyperlipidemia. Noemi [address] pain. Irregular heartbeat. HTN. GERD. Clotting problems. Anticoagulant therapy. SURGICAL HISTORY : Coronary artery stent. Fem/pop bypass. Cardiac cath. Lumbar surgery. ENCOUNTER: Initial ACUITY: 2 day PAIN SCORE: 9/10 LOCATION: Right leg. TECHNIQUE: Venous ultrasound of the leg was performed from the inguinal ligament to the proximal calf. Real-clarita e, color Doppler and spectral tracing, compression and augmentation techniques were used. FINDINGS: The examination is positive for nonocclusive deep venous thrombosis in the right proximal to distal s uperficial femoral vein. The right popliteal, peroneal, posterior tibial and saphenous veins are polanco nt. No superficial thrombus. CONCLUSION: 1. Partially occlusive deep venous thrombosis in the right superficial femoral vein. Sina Mao MD on May 12, 2017 at 12:55 Board Certified Radiologist. This report was verified electronically.
[2017-05-12 12:59] LABS: ANION GAP 7 MEQ/L (5-15); AST (GOT) 15 U/L (15-37); BICARBONATE 27.5 MEQ/L (21.0-32.0); BLOOD UREA NITROGEN 13 MG/DL (7-18); CHLORIDE 106 MEQ/L (98-107); GLOMERULAR FILTRATION RATE 108 ML/MIN (>89); POTASSIUM 4.5 MEQ/L (3.5-5.1); SODIUM (NA) 140 MEQ/L (136-145)
[2017-05-12 13:01] LABS: ALKALINE PHOSPHATASE 50 U/L (45-117); ALT (GPT) 20 U/L (12-78); TOTAL BILIRUBIN ADULT 0.4 MG/DL (0.2-1.0)
[2017-05-12] MEDS ORDERED: RIVA1TAB PO (13:17)
[2017-05-12] MEDS ORDERED: TRAM50TA PO (13:17)
[2017-05-12 13:39] VITALS: BP 170/91
== END 2017-05-12 13:52 | disposition home or self-care (01) ==
LOC: NEPD 11:05
DX: I82.411 Acute embolism and thrombosis of right femoral vein (principal)
CPT/HCPCS: 80053; 83605; 85025; 85610; 85730; 93971; 96374; 99285; J1885